=== PATIENT | female | born 1945 | race Caucasian/White ===

== ENCOUNTER 2017-02-01 10:03 | Outpatient (CLI) | payer MEDICARE ==
[2017-02-01] MEDS ORDERED: IOPAMIDOL-300 50 ML VIAL PO ONE (11:25)
[2017-02-01] MEDS ORDERED: IOPAMIDOL-300 100 ML VIAL IVP ONE (11:25)
--- NOTE | 2017-02-01 15:45 | CT Report ---
CT ABDOMEN AND PELVIS WITH CONTRAST: 02/01/2017 CLINICAL INDICATION: Bloating. TECHNIQUE: Axial CT images of the abdomen and pelvis were obtained with 60 mL Isovue-300 intravenous ly as well as oral contrast. No previous CT is available for comparison. FINDINGS: Limited evaluation of the lung bases is unremarkable. ABDOMEN: A portion of the stomach and spleen are excluded, due to an elevated left hemidiaphragm. T he liver demonstrates diffuse decrease in attenuation. Trace ascites is present. The gallbladder is nondistended. The visualized spleen, pancreas, kidneys and adrenal glands are unremarkable. No bow el dilatation, free gas, or abdominal adenopathy is seen. PELVIS: The appendix is seen in the right lower quadrant, and is normal in caliber. Trace ascites i s seen in the pelvis. Sigmoid diverticulosis is present, without CT evidence of diverticulitis. Pos toperative changes of hysterectomy are noted. No pelvic adenopathy is present. Osseous structures demonstrate degenerative changes. IMPRESSION: DECREASE IN HEPATIC ATTENUATION, COMPATIBLE WITH FATTY INFILTRATION. TRACE ASCITES. In accordance with CT protocol optimization, one or more of the following dose reduction techniques w ere utilized for this exam: automated exposure control, adjustment of mA and/or KV based on patient size, or use of iterative reconstructive technique. JOB #: [id number] EXT JOB #:[id number]
== END 2017-02-01 10:04 | disposition home or self-care (01) ==
LOC: DI 10:03
PROVIDERS: ATTEND Nurse Practitioner Family
DX: Z13.820 Encounter for screening for osteoporosis (principal); M85.88 Other specified disorders of bone density and structure, other site; R14.0 Abdominal distension (gaseous); F10.10 Alcohol abuse, uncomplicated; Z85.3 Personal history of malignant neoplasm of breast
CPT/HCPCS: 74177; 77080; Q9967

== ENCOUNTER 2017-02-01 10:30 | Outpatient (CLI) | payer MEDICARE ==
--- NOTE | 2017-02-01 13:09 | DEXA Report ---
DEXA SCAN: 02/01/2017 CLINICAL INDICATION: Postmenopausal. TECHNIQUE: Dual energy x-ray absorptiometry (DXA) was performed on a [employer] system. Regions measured are the AP spine, femoral neck, and, if needed, forearm. FINDINGS: The data for the lumbar spine is as follows: REGION BMD (g/cm/cm) T-SCORE Z-SCORE L1 0.818 -2.6 -1.1 L2 1.053 -1.2 0.2 L3 1.256 0.5 1.9 L4 1.169 -0.3 1.2 TOTAL 1.084 -0.8 0.7 NOTE: All evaluable vertebrae are used for classification. The data for the hip is as follows: REGION BMD (g/cm/cm) T-SCORE Z-SCORE Neck 0.778 -1.9 -0.2 TOTAL 0.802 -1.6 -0.2 NOTE: The femoral neck or total proximal femur, whichever is lowest, is used for classification. IMPRESSION: THE WHO CLASSIFICATION BASED ON THE INTERNATIONAL REFERENCE STANDARD IS OSTEOPENIA. THE FRACTURE RISK IS INCREASED. RECOMMENDATION: Patients with diagnosis of osteoporosis or osteopenia should have regular bone mineral density assessment. For those eligible for Medicare, routine testing is allowed once every 2 years. Testing frequency can be increased for patients who have rapidly progressing disease or for those who are receiving medical therapy to restore bone mass. COMMENT: World Health Organization (WHO) definitions for osteoporosis and osteopenia: NORMAL BMD: T-score at -1.0 or higher, fracture risk is low. OSTEOPENIA BMD: T-score between -1.0 and -2.5, fracture risk is increased. OSTEOPOROSIS BMD: T-score at -2.5 or lower, fracture risk high. National Osteoporosis Foundation recommends: 1. Obtain adequate dietary calcium (at least 1200 mg per day) and vitamin D (400 -800 international units per day). 2. Participate, as appropriate, in regular weightbearing and muscle- strengthening exercise. 3. Avoid tobacco use and reduce alcohol and caffeine intake. 4. For more detailed information see the website at www.NOF.org. MTDD
== END 2017-02-01 10:31 | disposition home or self-care (01) ==
LOC: DI 10:30
PROVIDERS: ATTEND Nurse Practitioner Family
DX: Z13.820 Encounter for screening for osteoporosis (principal); M85.88 Other specified disorders of bone density and structure, other site
CPT/HCPCS: 77080

== ENCOUNTER 2017-02-01 13:09 | Outpatient (CLI) | payer MEDICARE ==
--- NOTE | 2017-02-07 15:30 | Mammography Report ---
DIGITAL SCREENING RIGHT MAMMOGRAM: 02/01/2017 CLINICAL INDICATION: A 71-year-old with personal history of left breast cancer, status post mastectom y and chemoradiation, nulliparous patient, for right screening. TECHNIQUE: Right CC, MLO, laterally exaggerated CC views were obtained. COMPARISON: 12/2015, 12/2014, 10/2012, 09/2011, 09/2010, 09/2009, 09/2008, 09/2007, 10/2006. FINDINGS: The right breast demonstrates heterogeneously dense fibroglandular parenchyma. No suspicio us masses, clustered microcalcifications, or regions of architectural distortion are identified. IMPRESSION: NEGATIVE EXAMINATION. RECOMMENDATION: ROUTINE ANNUAL SCREENING UNLESS OTHERWISE CLINICALLY INDICATED. BIRADS CATEGORY 1-NEGATIVE. STANDARD QUALIFYING STATEMENTS 1. This examination was reviewed with the aid of Computer-Aided Detection (CAD). 2. A negative or benign imaging report should not delay biopsy if clinically suspicious findings are present. Consider surgical consultation if warranted. More than 5% of cancers are not identified by i maging. 3. Dense breasts may obscure an underlying neoplasm. JOB #: [id number] EXT JOB #:[id number]
== END 2017-02-01 13:10 | disposition home or self-care (01) ==
LOC: DI 13:09
PROVIDERS: ATTEND Nurse Practitioner Family
DX: Z12.31 Encounter for screening mammogram for malignant neoplasm of breast (principal); Z85.3 Personal history of malignant neoplasm of breast; Z90.12 Acquired absence of left breast and nipple
CPT/HCPCS: 77067

== ENCOUNTER 2017-02-11 14:31 | Outpatient (CLI) | payer MEDICARE | END 2017-02-11 14:32 | disposition critical access hospital (66) | LOC: EMS 14:31 | PROVIDERS: ATTEND Surgery | DX: S90.822A Blister (nonthermal), left foot, initial encounter (principal); W18.30XA Fall on same level, unspecified, initial encounter; Y92.013 Bedroom of single-family (private) house as the place of occurrence of the external cause | CPT/HCPCS: A0425; A0427 ==

== ENCOUNTER 2017-02-11 15:07 | Inpatient (IN) | payer MEDICARE ==
[2017-02-11] MEDS ORDERED: SODIUM CHLORIDE 0.9% 1,000 ML IV ONE ×2 (15:26)
--- NOTE | 2017-02-11 15:35 | ED Physician Documentation ---
History of Present Illness - Stated complaint Stated Complaint: FALL/ETOH - Chief complaint Chief Complaint: Neuro - History obtained from History obtained from: Patient, EMS - History of Present Illness Timing: Last night Pain level max: 0 Pain level now: 0 Improved by: nothing Worsened by: nothing - Additonal information Additional information: Patient is a 71-year-old female who presents to the emergency department after a fall last night at home. States she could not get up off the ground. Drinks 3-4 gin and tonics per night. She states that she has been increasingly falling over the past few weeks. Unsteady on her feet. She is a difficult historian here, has altered mental status. Review of Systems Unable to obtain: AMS Constitutional: denies: Fever, Chills Ears: denies: Ear pain Nose: denies: Rhinorrhea / runny nose, Congestion Cardiac: denies: Chest pain / pressure Respiratory: denies: Cough GI: denies: Abdominal Pain, Nausea, Vomiting, Diarrhea : denies: Dysuria Skin: denies: Rash Musculoskeletal: denies: Back pain Neurologic: reports: Generalized weakness, Confused, Altered mental status. denies: Focal weakness, Numbness PD PAST MEDICAL HISTORY - Past Medical History Past Medical History: Yes Other Past Medical History: breast CA - Past Surgical History Past Surgical History: Yes - Present Medications Home Medications: Ambulatory Orders Medication Instructions Recorded Confirmed Furosemide [Lasix] 40 mg DAILY 02/11/17 02/11/17 Venlafaxine HCl [Venlafaxine HCl 150 mg PO DAILY 02/11/17 02/11/17 ER] - Allergies Allergies/Adverse Reactions: Allergies Allergy/AdvReac Type Severity Reaction Status Date / Time No Known Drug Allergies Allergy Verified 02/11/17 17:27 - Living Situation Living Situation: reports: Alone Living Arrangement: reports: At home - Social History Does the pt drink ETOH?: Yes ETOH Use: Liquor - Family History Family history: reports: Non contributory PD ED PE NORMAL - Vitals Vital signs reviewed: Yes - General General: No acute distress, Well developed/nourished, Other (alert, oriented to person and place) - HEENT HEENT: Atraumatic, PERRL, Ears normal, Moist mucous membranes - Neck Neck: Supple, no meningeal sign - Cardiac Cardiac: RRR - Respiratory Respiratory: No respiratory distress, Clear bilaterally - Abdomen Abdomen: Soft, Non tender, Other (mild distended) - Back Back: No spinal TTP, Other (ecchymosis to the R ribs no crepitus) - Derm Derm: Warm and dry, No rash - Extremities Extremities: Other (ecchymosis to the lateral R thigh, diffuse pitting edema B LE up to the abdomen) - Neuro Neuro: No motor deficit, No sensory deficit - Psych Psych: Normal mood Results - Vitals Vitals: Vital Signs - 24 hr 02/11/17 02/11/17 02/11/17 15:10 15:45 16:00 Temperature 36 C L Heart Rate 131 H 129 H 129 H Respiratory 12 20 20 Rate Blood Pressure 110/77 122/89 H 122/89 H O2 Saturation 100 96 02/11/17 02/11/17 17:15 17:30 Temperature Heart Rate 128 H 131 H Respiratory 20 20 Rate Blood Pressure 119/71 118/77 O2 Saturation 97 Oxygen O2 Source Room air - EKG (time done) 1535 Rate: Rate (enter#) (133) Rhythm: Atrial fibrillation (with RVR) [place]: Normal QRS: No: Normal (wide QRS) Ischemia: Non specific changes Computer interpretation: Agree with computer - Labs Labs: Laboratory Tests 02/11/17 02/11/17 02/11/17 15:50 16:08 16:08 WBC 7.0 RBC 4.30 Hgb 12.5 Hct 38.9 MCV 90.4 MCH 29.1 MCHC 32.2 RDW 17.4 H Plt Count 159 MPV 8.9 Neut # 5.8 Lymph # 0.7 L [place] # 0.5 Eos # 0.0 Baso # 0.0 Absolute Nucleated RBC 0.00 Nucleated RBCs 0.1 PT INR APTT Sodium 128 L Potassium 4.5 Chloride 92 L Carbon Dioxide 21 Anion Gap 15.0 H BUN 42 H Creatinine 2.0 H Estimated GFR (MDRD) 24 L Glucose 75 Calcium 8.9 Total Bilirubin 2.6 H AST 123 H ALT 84 H Alkaline Phosphatase 143 H Ammonia Total Creatine Kinase 565 H B-Natriuretic Peptide Total Protein 6.1 L Albumin 2.9 L Globulin 3.2 Albumin/Globulin Ratio 0.9 L Lipase 23 Urine Color YELLOW Urine Clarity HAZY Urine pH 5.0 Ur Specific [place] >=1.030 H Urine Protein 30 H Urine Glucose (UA) NEGATIVE Urine Ketones TRACE Urine Occult Blood NEGATIVE Urine Nitrite NEGATIVE Urine Bilirubin NEGATIVE Urine Urobilinogen 0.2 (NORMAL) Ur Leukocyte Esterase NEGATIVE Urine RBC None Seen Urine WBC 0-3 Ur Squamous Epith Cells NONE SEEN Amorphous Sediment Marked Urine Bacteria None Seen Ur Microscopic Review INDICATED Urine Culture Comments NOT INDICATED Ethyl Alcohol 02/11/17 02/11/17 02/11/17 16:08 16:08 16:08 WBC RBC Hgb Hct MCV MCH MCHC RDW Plt Count MPV Neut # Lymph # [place] # Eos # Baso # Absolute Nucleated RBC Nucleated RBCs PT 19.9 H INR 1.8 H APTT 25.3 Sodium Potassium Chloride Carbon Dioxide Anion Gap BUN Creatinine Estimated GFR (MDRD) Glucose Calcium Total Bilirubin AST ALT Alkaline Phosphatase Ammonia Total Creatine Kinase B-Natriuretic Peptide 1317 H Total Protein Albumin Globulin Albumin/Globulin Ratio Lipase Urine Color Urine Clarity Urine pH Ur Specific [place] Urine Protein Urine Glucose (UA) Urine Ketones Urine Occult Blood Urine Nitrite Urine Bilirubin Urine Urobilinogen Ur Leukocyte Esterase Urine RBC Urine WBC Ur Squamous Epith Cells Amorphous Sediment Urine Bacteria Ur Microscopic Review Urine Culture Comments Ethyl Alcohol < 5.0 02/11/17 17:06 WBC RBC Hgb Hct MCV MCH MCHC RDW Plt Count MPV Neut # Lymph # [place] # Eos # Baso # Absolute Nucleated RBC Nucleated RBCs PT INR APTT Sodium Potassium Chloride Carbon Dioxide Anion Gap BUN Creatinine Estimated GFR (MDRD) Glucose Calcium Total Bilirubin AST ALT Alkaline Phosphatase Ammonia 34.4 Total Creatine Kinase B-Natriuretic Peptide Total Protein Albumin Globulin Albumin/Globulin Ratio Lipase Urine Color Urine Clarity Urine pH Ur Specific [place] Urine Protein Urine Glucose (UA) Urine Ketones Urine Occult Blood Urine Nitrite Urine Bilirubin Urine Urobilinogen Ur Leukocyte Esterase Urine RBC Urine WBC Ur Squamous Epith Cells Amorphous Sediment Urine Bacteria Ur Microscopic Review Urine Culture Comments Ethyl Alcohol - Rads (name of study) R femur Radiology: Prelim report reviewed, EMP read contemporaneously, See rad report ( Normal femur radiography. ) R ribs with cxr Radiology: Prelim report reviewed, EMP read contemporaneously, See rad report ( Normal rib radiography. ) head CT Radiology: Prelim report reviewed, EMP read contemporaneously, See rad report ( Normal head CT. ) cervical spine CT Radiology: Prelim report reviewed, EMP read contemporaneously, See rad report ( Mild degenerative disk disease cervical spine without evidence of cervical spine fracture) PD MEDICAL DECISION MAKING - ED course Complexity details: reviewed old records, reviewed results, re-evaluated patient , considered differential, d/w patient, d/w education sales consultant ED course: Patient is a 71-year-old female who presents to the emergency department after falling down at home last night and being unable to get up. Found by EMS today. She appears to have alcoholic cirrhosis with moderate ascites in the abdomen. No abdominal tenderness to suggest spontaneous bacterial peritonitis. She does have significant peripheral edema and an elevated BNP. Likely that she has congestive heart failure as well. She is also found to be in atrial fibrillation with rapid ventricular response. Appears that this is been ongoing for some time per her physician notes from outside the hospital. She has refused to come to the hospital for this in the past. Started on a diltiazem drip. Discussed the case with Dr. Murphy, hospitalist who accepts. This document was made in part using voice recognition software. While efforts are made to proofread this document, sound alike and grammatical errors may occur. Departure - Departure Disposition: 66 [facility] DC/Xfer Clinical Impression: Hyponatremia, Acute renal insufficiency, Peripheral edema, Atrial fibrillation with RVR Ascites Qualifiers: Ascites type: due to alcoholic cirrhosis Qualified Code(s): K70.31 - Alcoholic cirrhosis of liver with ascites Condition: Stable Discharge Date/Time: 02/11/17 19:30
[2017-02-11 16:10] LABS: BILIRUBIN,URINE NEGATIVE (NEGATIVE); UA w/ MICROSCOPIC CHARGE YES
[2017-02-11 16:17] LABS: BASOPHILS % (AUTO) 0.5 %; HCT - HEMATOCRIT 38.9 % (37.0-47.0); HGB - HEMOGLOBIN 12.5 g/dL (12.0-16.0); LYMPHOCYTES # (AUTO) 0.7 10^3/uL (1.5-3.5); LYMPHOCYTES % (AUTO) 9.5 %; MEAN CORPUSCULAR HEMOGLOBIN 29.1 pg (27.0-31.0); MEAN CORPUSCULAR HGB CONC 32.2 g/dL (32.0-36.0); MEAN CORPUSCULAR VOLUME 90.4 fL (81.0-99.0); MEAN PLATELET VOLUME 8.9 fL (7.9-10.8); MONOCYTES # (AUTO) 0.5 10^3/uL (0.0-1.0); MONOCYTES % (AUTO) 7.2 %; NEUTROPHILS # (AUTO) 5.8 10^3/uL (1.5-6.6); NEUTROPHILS % (AUTO) 82.8 %; NUCLEATED RED BLOOD CELLS AUTO 0.1 /100WBC; RED CELL DISTRIBUTION WIDTH 17.4 % (12.0-15.0)
[2017-02-11 16:25] LABS: INR 1.8 (0.8-1.2); PT - PROTHROMBIN TIME 19.9 secs (9.9-12.6)
[2017-02-11 16:30] LABS: ALBUMIN/GLOBULIN RATIO 0.9 (1.0-2.2); BILIRUBIN,TOTAL 2.6 mg/dL (0.2-1.0); CALCIUM 8.9 mg/dL (8.5-10.3); POTASSIUM 4.5 mmol/L (3.5-5.0); TOTAL PROTEIN 6.1 g/dL (6.7-8.2)
[2017-02-11 16:32] LABS: PARTIAL THROMBOPLASTIN TIME 25.3 secs (24.9-33.3)
--- NOTE | 2017-02-11 16:44 | CT Preliminary Report ---
Exam: CT Head W/O IMPRESSION: Normal head CT. [facility] SITE ID: [id number]
--- NOTE | 2017-02-11 16:47 | CT Report ---
EXAM: CT HEAD EXAM DATE: 02/11/2017 04:25 PM. CLINICAL HISTORY: Fall, loss of consciousness. COMPARISON: None. TECHNIQUE: Multiaxial CT images were obtained from the foramen magnum to the vertex. IV contrast: Non e. Reformats: Coronal. In accordance with CT protocol optimization, one or more of the following dose reduction techniques w ere utilized for this exam: automated exposure control, adjustment of mA and/or KV based on patient s ize, or use of iterative reconstructive technique. FINDINGS: Parenchyma: No intraparenchymal hemorrhage. No evidence of mass, midline shift, or CT findings of inf arction. Haji-white differentiation is distinct. Extraaxial Spaces: Normal for age. No subdural or epidural collections identified. Ventricles: Normal in size and position. Sinuses: Imaged paranasal sinuses, orbits, and mastoids show no significant abnormality. Bones: No evidence of fracture or calvarial defect. Other: None. IMPRESSION: Normal head CT. [facility] Referring Provider Line: [phone] SITE ID: [id number]
[2017-02-11 16:56] LABS: UR CULTURE IF IND NOT INDICATED; WBC,URINE 0-3 /HPF (0-5)
--- NOTE | 2017-02-11 17:01 | CT Preliminary Report ---
Exam: CT Cervical Spine W/O IMPRESSION: Mild degenerative disk disease cervical spine without evidence of cervical spine fracture . [facility] SITE ID: [id number]
--- NOTE | 2017-02-11 17:04 | CT Report ---
EXAM: CT CERVICAL SPINE WITHOUT CONTRAST DATE: 02/11/2017 04:25 PM HISTORY: Fall, loss of consciousness. COMPARISONS: None. TECHNIQUE: Thin-section axial images were acquired of the cervical spine without contrast. Post-proce ssing: Coronal and sagittal reformats. Other: None. In accordance with CT protocol optimization, one or more of the following dose reduction techniques w ere utilized for this exam: automated exposure control, adjustment of mA and/or KV based on patient s ize, or use of iterative reconstructive technique. FINDINGS: Alignment: Normal. No scoliosis or spondylolisthesis. Bones: No evidence of fracture. Left temporomandibular joint osteoarthritis. Interspace Levels/Facets: C1-C2: Unremarkable. C2-C3: Unremarkable. C3-C4: Minimal calcification within the disk space without significant stenosis. C4-C5: Facet hypertrophy without significant stenosis. C5-C6: Facet hypertrophy without significant stenosis. C6-C7: Unremarkable. C7-T1: Facet hypertrophy without significant stenosis. Other: The paravertebral and prevertebral soft tissues are normal. The lung apices are clear. IMPRESSION: Mild degenerative disk disease cervical spine without evidence of cervical spine fracture . [facility] Referring Provider Line: [phone] SITE ID: [id number]
--- NOTE | 2017-02-11 17:21 | XRAY Preliminary Report ---
Exam: XR Femur 2V RT IMPRESSION: Normal femur radiography. [facility] SITE ID: [id number]
--- NOTE | 2017-02-11 17:24 | XRAY Report ---
EXAM: RIGHT FEMUR RADIOGRAPHY EXAM DATE: 02/11/2017 04:54 PM. CLINICAL HISTORY: Fall R leg ecchymosis. COMPARISON: None. TECHNIQUE: 2 views. FINDINGS: Bones: Normal. No fracture or bone lesion. Joints: The visualized hip and knee joints are normal. No effusions. Soft Tissues: Normal. No soft tissue swelling. IMPRESSION: Normal femur radiography. [facility] Referring Provider Line: [phone] SITE ID: [id number]
--- NOTE | 2017-02-11 17:26 | XRAY Preliminary Report ---
Exam: XR Ribs w/PA Chest RT IMPRESSION: Normal rib radiography. [facility] SITE ID: [id number]
--- NOTE | 2017-02-11 17:29 | XRAY Report ---
EXAM: RIGHT RIB RADIOGRAPHY EXAM DATE: 02/11/2017 04:55 PM. CLINICAL HISTORY: Fall, R rib ecchymosis. COMPARISON: None. TECHNIQUE: 5 views. FINDINGS: Bones: Normal. No fracture or bone lesion. Lungs: Elevation of the left hemidiaphragm. The lungs are otherwise clear. Mediastinum: Heart and cardiomediastinal contours are unremarkable. Other: Status post left mastectomy Dissection. Median sternotomy noted. IMPRESSION: Normal rib radiography. [facility] Referring Provider Line: [phone] SITE ID: [id number]
[2017-02-11] MEDS ORDERED: diltiaZEM INJ 125 MG in DEXTROSE 5% 100 ML IV STA (17:39)
[2017-02-11] MEDS ORDERED: FUROSEMIDE 40 MG/4 ML VIAL IVP STA (17:42)
[2017-02-11] MEDS ORDERED: diltiaZEM INJ 5 MG/ML VIAL IVP STA (17:43)
[2017-02-11] MEDS ORDERED: FUROSEMIDE 40 MG/4 ML VIAL ONE (17:43)
[2017-02-11] MEDS ORDERED: ONDANSETRON 4 MG/2 ML VIAL IVP PRN (18:07)
[2017-02-11] MEDS ORDERED: PROMETHAZINE 25 MG/1 ML VIAL IM PRN (18:07)
[2017-02-11] MEDS ORDERED: ONDANSETRON ODT 4 MG TABLET TL PRN (18:07)
[2017-02-11] MEDS ORDERED: diltiaZEM INJ 5 MG/ML VIAL ONE (18:11)
[2017-02-11] MEDS: CARVEDILOL 3.125 MG TABLET PO SCH (21:52)
[2017-02-11] MEDS: FUROSEMIDE 40 MG/4 ML VIAL IVP SCH (21:52)
[2017-02-11] MEDS: DIGOXIN 500 MCG/2 ML AMP IVP SCH (21:52)
[2017-02-11] MEDS: SODIUM CHLORIDE FLUSH 0.9% 10 ML SYRINGE IVP SCH (21:53)
[2017-02-11] MEDS: SODIUM CHLORIDE FLUSH 0.9% 10 ML SYRINGE IVP PRN ×2 (21:53→22:10)
[2017-02-11] MEDS: LORazepam 2 MG/ML SYRINGE IVP PRN ×2 (22:10→23:01)
[2017-02-12] MEDS ORDERED: OLANZapine 10 MG VIAL IM SCH (00:47)
[2017-02-12] MEDS ORDERED: WATER FOR INJECTION,STERILE 10 ML ONE (01:16)
[2017-02-12] MEDS ORDERED: FLUMAZENIL 0.1 MG/1 ML 5 ML MDV IVP ONE ×2 (02:17→02:21)
--- NOTE | 2017-02-12 02:25 | PROVIDER PROGRESS NOTE ---
Assessment/Plan - Problem List (1) Acute respiratory failure with hypoxia Assessment/Plan: Since appears to have MIRYAM due to extreme drowsiness so will place in ICU for CPAP support. Check CXR. Check EKG Check serial troponins Check VBG Of note pt is DNR/DNI (2) Acute encephalopathy Assessment/Plan: May be related to oversedation. Try low dose flumazenil. Check stat CT head s contrast given recent falls at home. - Current Meds Current Meds: Current Medications Generic Name Dose Route Start Last Admin Trade Name Freq PRN Reason Stop Dose Admin Carvedilol 3.125 mg 02/11/17 21:00 02/11/17 21:52 Coreg PO 3.125 mg BID DIEGO Administration Digoxin 250 mcg 02/11/17 21:00 02/11/17 21:52 Lanoxin Inj IVP 02/12/17 17:01 250 mcg QID DIEGO Administration Furosemide 40 mg 02/11/17 21:00 02/11/17 21:52 Lasix Inj 40 Mg Vial IVP 40 mg BID DIEGO Administration Diltiazem HCl 125 mg/ Dextrose 125 mls @ 5 mls/hr 02/11/17 17:39 02/11/17 18:01 IV 02/12/17 18:38 5 mls/hr TITR STA Administration Protocol 5 MG/HR Lorazepam 0.5 mg 02/11/17 21:04 02/11/17 22:10 Ativan Inj IVP 0.5 mg Q2HR PRN Administration Anxiety Lorazepam 1 mg 02/11/17 22:51 02/11/17 23:01 Ativan Inj IVP 1 mg Q30M PRN Administration CIWA > 8 Protocol Olanzapine 5 mg 02/12/17 00:47 02/12/17 01:23 Zyprexa Im IM 02/12/17 04:00 5 mg ONCE DIEGO Administration Sodium Chloride 10 ml 02/11/17 18:07 02/11/17 22:10 Normal Saline Flush 0.9% IVP 10 ml PRN PRN Administration NEEDED PER PROVIDER ORDERS Sodium Chloride 10 ml 02/11/17 22:00 02/11/17 21:53 Normal Saline Flush 0.9% IVP 10 ml Q8HR DIEGO Administration - Lab Result Fish Bone Diagrams: 02/11/17 16:08 02/11/17 16:08 - Additional Planning My Orders: My Active Orders 02/11/17 21:03 Telemetry- [RC] Q4HR 02/11/17 21:04 LORazepam INJ [Ativan Inj] 0.5 mg IVP Q2HR PRN 02/11/17 22:51 CIWA - AR Score Card [RC] Routine Q2H Neuro Check [RC] Routine QSHIFT Straight Catheter Insertion [RC] PRN Vital Signs [RC] Q2HR LORazepam INJ [Ativan Inj] 1 mg IVP Q30M PRN 02/12/17 Head W/O [CT] Stat VENOUS BLOOD GAS [BG] Urgent Wound Consult MAC [MAC] Routine 02/12/17 00:47 OLANZapine IM [ZyPREXA IM] 5 mg IM ONCE 02/12/17 01:59 Admit \ Transfer \ Status [RC] ONCE 02/12/17 02:01 CPAP [BiPAP/CPAP] [RC] Q2HR 02/12/17 02:02 EKG - Electrocardiogram [RC] .ONCE TROPONIN I [IAI] Q6H 02/12/17 02:21 Flumazenil [Romazicon] 0.2 mg IVP ONCE ONE 02/12/17 05:00 COMPREHENSIVE METABOLIC PANEL [CHEM] Routine 02/12/17 08:02 TROPONIN I [IAI] Q6H 02/12/17 09:00 Nicotine 14 mg Patch [Nicoderm] 1 patch TOP DAILY Vitamin [Trinatal Rx 1] 1 tab PO DAILY Thiamine [Vitamin B-1] 100 mg PO DAILY 02/12/17 14:02 TROPONIN I [IAI] Q6H Subjective - Subjective Patient Reports: Other (Asked to see pt for increased respiratory distress with hypoxia and apneic periods and increased drowsiness . She was given some iv ativan and then was still agitated ,restless but no hypertension or tachycardia suggesting ETOH withdrawal. Pt then given im zyprexa and about an hour later this occurred.) Objective Vital Signs: Vital Signs - 24 hr 02/11/17 02/11/17 02/11/17 19:22 20:30 21:52 Temperature 36.6 C Heart Rate 114 H 118 H Heart Rate [ 110 H Radial] Respiratory 22 20 Rate Blood Pressure 118/66 Blood Pressure 102/70 [Right Brachial artery] O2 Saturation 99 98 Oxygen O2 Source Room air I&O (Last 24 Hrs): Intake and Output Totals x24h 06/11/17 06/12/17 06/13/17 23:59 23:59 23:59 Intake Total 50 Output Total 450 Balance -400 General: Other (very drowy but responds to painful stimuli) HEENT: Atraumatic, Other (slightly contricted BL) Neck: Supple Neuro: Non Focal, Other (drowsy but responds to painful stimuli) Cardiovascular: Regular rate, Normal S1, Normal S2 Respiratory: Other (Decresed BS at bases with some upper airway snoring) Abdomen: Normal bowel sounds, No tenderness Extremities: No cyanosis, Normal pulses Comments/Notes: Time spent 45 minutes. - Results Results: Laboratory Results WBC 7.0 x10^3/uL (4.8-10.8) 02/11/17 16:08 RBC 4.30 10^6/uL (4.20-5.40) 02/11/17 16:08 Hgb 12.5 g/dL (12.0-16.0) 02/11/17 16:08 Hct 38.9 % (37.0-47.0) 02/11/17 16:08 MCV 90.4 fL (81.0-99.0) 02/11/17 16:08 MCH 29.1 pg (27.0-31.0) 02/11/17 16:08 MCHC 32.2 g/dL (32.0-36.0) 02/11/17 16:08 RDW 17.4 % (12.0-15.0) H 02/11/17 16:08 Plt Count 159 10^3/uL (130-450) 02/11/17 16:08 MPV 8.9 fL (7.9-10.8) 02/11/17 16:08 Neut # 5.8 10^3/uL (1.5-6.6) 02/11/17 16:08 Lymph # 0.7 10^3/uL (1.5-3.5) L 02/11/17 16:08 [place] # 0.5 10^3/uL (0.0-1.0) 02/11/17 16:08 Eos # 0.0 10^3/uL (0.0-0.7) 02/11/17 16:08 Baso # 0.0 10^3/uL (0.0-0.1) 02/11/17 16:08 Absolute Nucleated RBC 0.00 x10^3/uL 02/11/17 16:08 Nucleated RBCs 0.1 /100WBC 02/11/17 16:08 PT 19.9 secs (9.9-12.6) H 02/11/17 16:08 INR 1.8 (0.8-1.2) H 02/11/17 16:08 APTT 25.3 secs (24.9-33.3) 02/11/17 16:08 Sodium 128 mmol/L (135-145) L 02/11/17 16:08 Potassium 4.5 mmol/L (3.5-5.0) 02/11/17 16:08 Chloride 92 mmol/L (101-111) L 02/11/17 16:08 Carbon Dioxide 21 mmol/L (21-32) 02/11/17 16:08 Anion Gap 15.0 (6-13) H 02/11/17 16:08 BUN 42 mg/dL (6-20) H 02/11/17 16:08 Creatinine 2.0 mg/dL (0.4-1.0) H 02/11/17 16:08 Estimated GFR (MDRD) 24 (>89) L 02/11/17 16:08 Glucose 75 mg/dL (70-100) 02/11/17 16:08 Calcium 8.9 mg/dL (8.5-10.3) 02/11/17 16:08 Total Bilirubin 2.6 mg/dL (0.2-1.0) H 02/11/17 16:08 AST 123 IU/L (10-42) H 02/11/17 16:08 ALT 84 IU/L (10-60) H 02/11/17 16:08 Alkaline Phosphatase 143 IU/L (42-121) H 02/11/17 16:08 Ammonia 34.4 umol/L (7-35) 02/11/17 17:06 Total Creatine Kinase 565 IU/L (22-269) H 02/11/17 16:08 B-Natriuretic Peptide 1317 pg/mL (5-100) H 02/11/17 16:08 Total Protein 6.1 g/dL (6.7-8.2) L 02/11/17 16:08 Albumin 2.9 g/dL (3.2-5.5) L 02/11/17 16:08 Globulin 3.2 g/dL (2.1-4.2) 02/11/17 16:08 Albumin/Globulin Ratio 0.9 (1.0-2.2) L 02/11/17 16:08 Lipase 23 U/L (22-51) 02/11/17 16:08 Urine Color YELLOW 02/11/17 15:50 Urine Clarity HAZY (CLEAR) 02/11/17 15:50 Urine pH 5.0 PH (5.0-7.5) 02/11/17 15:50 Ur Specific [place] >=1.030 (1.002-1.030) H 02/11/17 15:50 Urine Protein 30 mg/dL (NEGATIVE) H 02/11/17 15:50 Urine Glucose (UA) NEGATIVE mg/dL (NEGATIVE) 02/11/17 15:50 Urine Ketones TRACE mg/dL (NEGATIVE) 02/11/17 15:50 Urine Occult Blood NEGATIVE (NEGATIVE) 02/11/17 15:50 Urine Nitrite NEGATIVE (NEGATIVE) 02/11/17 15:50 Urine Bilirubin NEGATIVE (NEGATIVE) 02/11/17 15:50 Urine Urobilinogen 0.2 (NORMAL) E.U./dL (NORMAL) 02/11/17 15:50 Ur Leukocyte Esterase NEGATIVE (NEGATIVE) 02/11/17 15:50 Urine RBC None Seen /HPF (0-5) 02/11/17 15:50 Urine WBC 0-3 /HPF (0-5) 02/11/17 15:50 Ur Squamous Epith Cells NONE SEEN (<= Few) 02/11/17 15:50 Amorphous Sediment Marked /LPF 02/11/17 15:50 Urine Bacteria None Seen /HPF (None Seen) 02/11/17 15:50 Ur Microscopic Review INDICATED 02/11/17 15:50 Urine Culture Comments NOT INDICATED 02/11/17 15:50 Ethyl Alcohol < 5.0 mg/dL 02/11/17 16:08
[2017-02-12 03:33] LABS: VBG BASE EXCESS -6.3 mmol/L (-2 - +2); VBG OXYGEN SATURATION 98.9 % (60-80); VBG PH 7.23 (7.31-7.41); VBG TOTAL CO2 23.1 mmol/L (24-29)
[2017-02-12 03:43] LABS: ALBUMIN/GLOBULIN RATIO 0.9 (1.0-2.2); BILIRUBIN,TOTAL 2.3 mg/dL (0.2-1.0); CALCIUM 8.7 mg/dL (8.5-10.3); CREATININE 2.2 mg/dL (0.4-1.0); POTASSIUM 4.4 mmol/L (3.5-5.0); TOTAL PROTEIN 5.9 g/dL (6.7-8.2)
--- NOTE | 2017-02-12 05:15 | XRAY Preliminary Report ---
Exam: XR Chest 1 View IMPRESSION: 1. Rotated exam with cardiomegaly and postoperative changes. 2. New pulmonary opacities probably representing pulmonary edema or volume overload. Possible small e ffusions. [facility] SITE ID: [id number]
--- NOTE | 2017-02-12 05:18 | XRAY Report ---
EXAM: CHEST RADIOGRAPHY EXAM DATE: 02/12/2017 04:50 AM. CLINICAL HISTORY: Hypoxia. COMPARISON: 02/11/2017. TECHNIQUE: 1 view. FINDINGS: Lungs/Pleura: New bilateral pulmonary opacities, likely pulmonary edema or volume overload. Possible small effusions. No pneumothorax. Mediastinum: Rotated. Mild cardiomegaly. Aortic atherosclerosis. Other: Median sternotomy. Left mastectomy and axillary dissection. IMPRESSION: 1. Rotated exam with cardiomegaly and postoperative changes. 2. New pulmonary opacities probably representing pulmonary edema or volume overload. Possible small e ffusions. [facility] Referring Provider Line: [phone] SITE ID: [id number]
[2017-02-12] MEDS: SODIUM CHLORIDE FLUSH 0.9% 10 ML SYRINGE IVP PRN ×3 (06:40→23:58)
[2017-02-12] MEDS: SODIUM CHLORIDE FLUSH 0.9% 10 ML SYRINGE IVP SCH ×3 (06:40→21:30)
--- NOTE | 2017-02-12 06:50 | CT Preliminary Report ---
Exam: CT Head W/O IMPRESSION: No acute intracranial process. Stable findings since 02/11/2017. [facility] SITE ID: [id number]
--- NOTE | 2017-02-12 06:52 | CT Report ---
EXAM: CT HEAD EXAM DATE: 02/12/2017 06:20 AM. CLINICAL HISTORY: Acute encephalopathy. COMPARISON: 02/11/2017. TECHNIQUE: Multiaxial CT images were obtained from the foramen magnum to the vertex. IV contrast: Non e. Reformats: Coronal. In accordance with CT protocol optimization, one or more of the following dose reduction techniques w ere utilized for this exam: automated exposure control, adjustment of mA and/or KV based on patient s ize, or use of iterative reconstructive technique. FINDINGS: Parenchyma: No intraparenchymal hemorrhage. No evidence of mass, midline shift, or CT findings of int erval infarction. Haji-white differentiation is distinct. Extraaxial Spaces: Normal for age. No subdural or epidural collections identified. Ventricles: Normal in size and position. Sinuses: Imaged paranasal sinuses, orbits, and mastoids show no significant abnormality. Bones: No evidence of fracture or calvarial defect. Other: Small hypodensity left posterior putamen, old lacunar infarct versus dilated perivascular spac e, unchanged. IMPRESSION: No acute intracranial process. Stable findings since 02/11/2017. [facility] Referring Provider Line: [phone] SITE ID: [id number]
[2017-02-12 07:03] LABS: VBG BASE EXCESS -2.4 mmol/L (-2 - +2); VBG OXYGEN SATURATION 99.2 % (60-80); VBG PH 7.374 (7.31-7.41); VBG TOTAL CO2 23.8 mmol/L (24-29)
[2017-02-12] MEDS ORDERED: LACTULOSE 10 GM/15 ML BOTTLE PR PRN (07:35)
--- NOTE | 2017-02-12 07:39 | PROVIDER PROGRESS NOTE ---
Assessment/Plan - Problem List (1) Acute encephalopathy Assessment/Plan: Appears likely to be secondary to medication as patient received zyprexa and ativan last night Became unresponsive and had decreased respiratory drive CXR showed pulmonary edema but no focal infiltrates Given Flumazenil CT head negative Ammonia level normal Patient on BiPAP to help breathing Improving slowly opens eyes this am and following commands Will continue to monitor (2) Acute respiratory failure with hypoxia Assessment/Plan: Likely secondary to number 1 leading to decreased respiratory drive On BiPAP with good sats and no hypercapnea Once more awake will wean off BiPAP and O2 (3) Atrial fibrillation with RVR Assessment/Plan: Presented with A fib in rvr HR controlled this am Off dilt drip Continue PO dig and coreg CHADS2 score [address] on ASA (4) CHF exacerbation Qualifiers: Congestive heart failure type: unspecified congestive heart failure type Qualified Code(s): I50.9 - Heart failure, unspecified Assessment/Plan: Low normal EF on Echo Presented with a fib rvr and hypoxia with LE edema Looked to be in CHF exacerbation likely secondary to uncontrolled a fib rvr Placed on dilt drip and rate now controlled Placed on IV lasix On CoReg and dig will start lisinopril once photography editor improved Monitor I/O and daily weights (5) Elevated LFTs Assessment/Plan: Likely secondary to fatty liver as seen on previous CT abd Patient is a drinker could be developing cirrhosis as she has an INR of 1.8 and elevated Bili Ultrasound of abd and hepatitis panel ordered Monitor LFTs (6) Hyponatremia Assessment/Plan: Likely hypervolemic hyponatremia On IV lasix Continue to monitor Na (7) CONNIE (acute kidney injury) Assessment/Plan: Senior Java Architect elevated at 2.2 with no baseline photography editor in our system Assumed to be acute kidney injury likely cardio-renal or hepatorenal Give IV lasix If worsening will need to consider IVFs and renal ultrasound (8) Alcohol abuse Assessment/Plan: Drinks 3-4 gin and tonics daily Will monitor closely Hold off on banana bag secondary to volume overload Give PO thiamine, PO MV and PO folate CIWA protocol hold ativan for encephalopathy Strategic 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 Director 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 more alert - Current Meds Current Meds: Current Medications Generic Name Dose Route Start Last Admin Trade Name Freq PRN Reason Stop Dose Admin Carvedilol 3.125 mg 02/11/17 21:00 02/11/17 21:52 Coreg PO 3.125 mg BID DIEGO Administration Digoxin 250 mcg 02/11/17 21:00 02/11/17 21:52 Lanoxin Inj IVP 02/12/17 17:01 250 mcg QID DIEGO Administration Furosemide 40 mg 02/11/17 21:00 02/11/17 21:52 Lasix Inj 40 Mg Vial IVP 40 mg BID DIEGO Administration Diltiazem HCl 125 mg/ Dextrose 125 mls @ 5 mls/hr 02/11/17 17:39 02/11/17 18:01 IV 02/12/17 18:38 5 mls/hr TITR STA Administration Protocol 5 MG/HR Lorazepam 0.5 mg 02/11/17 21:04 02/11/17 22:10 Ativan Inj IVP 0.5 mg Q2HR PRN Administration Anxiety Lorazepam 1 mg 02/11/17 22:51 02/11/17 23:01 Ativan Inj IVP 1 mg Q30M PRN Administration CIWA > 8 Protocol Sodium Chloride 10 ml 02/11/17 18:07 02/12/17 06:40 Normal Saline Flush 0.9% IVP 10 ml PRN PRN Administration NEEDED PER PROVIDER ORDERS Sodium Chloride 10 ml 02/11/17 22:00 02/12/17 06:40 Normal Saline Flush 0.9% IVP 10 ml Q8HR DIEGO Administration - Lab Result Lab results reviewed: Yes Fish Bone Diagrams: 02/11/17 16:08 02/12/17 03:23 - EKG Results EKG Interpreted Independently: Yes - Diagnostic Imaging Results Diagnostic Imaging Results: positive: Final report reviewed - Additional Planning Condition/Complexity: Critical My Orders: My Active Orders 02/12/17 AMMONIA [CHEM] Routine 02/12/17 07:35 Lactulose 60 gm FL QID PRN Plan Discussed with:: Patient Time Spent: 31-60 minutes Subjective - Subjective Patient Reports: Other (Patient very lethargic, open eyes to verbal stimuli but not talking clearly, she does follow commands. No fevers overnight. She became lethargic with decreased respiratory drive overnight.) Nursing Reports: No Complaints Objective Vital Signs: Vital Signs - 24 hr 02/11/17 02/11/17 02/11/17 19:22 20:30 21:52 Temperature 36.6 C Heart Rate 114 H 118 H Heart Rate [ 110 H Radial] Respiratory 22 20 Rate Blood Pressure 118/66 Blood Pressure 102/70 [Right Brachial artery] O2 Saturation 99 98 02/12/17 02/12/17 02/12/17 02:10 02:15 02:20 Temperature Heart Rate 105 H Heart Rate [ 118 H 118 H Radial] Respiratory 15 24 Rate Blood Pressure Blood Pressure 123/91 H 120/74 [Right Brachial artery] O2 Saturation 100 98 02/12/17 02/12/17 02/12/17 02:25 02:30 03:00 Temperature 36.1 C L Heart Rate Heart Rate [ 116 H 109 H 105 H Radial] Respiratory 15 15 16 Rate Blood Pressure Blood Pressure 127/67 120/98 H 111/64 [Right Brachial artery] O2 Saturation 99 99 02/12/17 02/12/17 02/12/17 03:05 03:10 03:15 Temperature Heart Rate Heart Rate [ 106 H 108 H 106 H Radial] Respiratory 15 15 15 Rate Blood Pressure Blood Pressure 115/55 L 117/63 112/61 [Right Brachial artery] O2 Saturation 99 97 97 02/12/17 02/12/17 02/12/17 03:30 03:45 04:00 Temperature Heart Rate Heart Rate [ 100 103 H 101 H Radial] Respiratory 15 18 15 Rate Blood Pressure Blood Pressure 114/72 109/54 L 88/54 L [Right Brachial artery] O2 Saturation 99 99 98 02/12/17 02/12/17 02/12/17 04:06 04:20 05:00 Temperature Heart Rate 101 H Heart Rate [ 98 Radial] Respiratory 22 Rate Blood Pressure Blood Pressure 107/68 90/51 L [Right Brachial artery] O2 Saturation 97 02/12/17 02/12/17 02/12/17 06:00 06:15 07:15 Temperature 36.9 C Heart Rate 94 95 Heart Rate [ 92 Radial] Respiratory 17 Rate Blood Pressure Blood Pressure 106/63 [Right Brachial artery] O2 Saturation 100 Oxygen O2 Source BIPAP I&O (Last 24 Hrs): Intake and Output Totals x24h 02/10/17 02/11/17 02/12/17 23:59 23:59 23:59 Intake Total 50 Output Total 450 400 Balance -400 -400 General: Other (Lethargic, follows commands slowly, wakes up to verbal stimuli but not verbal.) HEENT: Atraumatic, PERRLA, EOMI, Mucous membr. moist/pink Neck: Supple, No JVD, No thyromegaly, +2 carotid pulse wo bruit, No LAD Lymphatic: no adenopathy Neuro: Non Focal, Other (lethargic, follows simple commands) Cardiovascular: Other (Irregularly irregular rhythm with normal rate) Respiratory: No respiratory distress, Rales (bases) Abdomen: Normal bowel sounds, Soft, No tenderness, No hepatospenomegaly, No masses Extremities: No clubbing, No cyanosis, Normal pulses, Other (Bilateral LE edema) Skin: No rashes, No breakdown - Results Results: Laboratory Results WBC 7.0 x10^3/uL (4.8-10.8) 02/11/17 16:08 RBC 4.30 10^6/uL (4.20-5.40) 02/11/17 16:08 Hgb 12.5 g/dL (12.0-16.0) 02/11/17 16:08 Hct 38.9 % (37.0-47.0) 02/11/17 16:08 MCV 90.4 fL (81.0-99.0) 02/11/17 16:08 MCH 29.1 pg (27.0-31.0) 02/11/17 16:08 MCHC 32.2 g/dL (32.0-36.0) 02/11/17 16:08 RDW 17.4 % (12.0-15.0) H 02/11/17 16:08 Plt Count 159 10^3/uL (130-450) 02/11/17 16:08 MPV 8.9 fL (7.9-10.8) 02/11/17 16:08 Neut # 5.8 10^3/uL (1.5-6.6) 02/11/17 16:08 Lymph # 0.7 10^3/uL (1.5-3.5) L 02/11/17 16:08 [place] # 0.5 10^3/uL (0.0-1.0) 02/11/17 16:08 Eos # 0.0 10^3/uL (0.0-0.7) 02/11/17 16:08 Baso # 0.0 10^3/uL (0.0-0.1) 02/11/17 16:08 Absolute Nucleated RBC 0.00 x10^3/uL 02/11/17 16:08 Nucleated RBCs 0.1 /100WBC 02/11/17 16:08 PT 19.9 secs (9.9-12.6) H 02/11/17 16:08 INR 1.8 (0.8-1.2) H 02/11/17 16:08 APTT 25.3 secs (24.9-33.3) 02/11/17 16:08 VBG pH 7.374 (7.31-7.41) 02/12/17 06:52 VBG pCO2 39.6 mmHg (41-51) L 02/12/17 06:52 VBG pO2 182.3 mmHg (25-47) H 02/12/17 06:52 VBG HCO3 22.6 mmol/L (23-28) L 02/12/17 06:52 VBG Total CO2 23.8 mmol/L (24-29) L 02/12/17 06:52 VBG O2 Saturation 99.2 % (60-80) H 02/12/17 06:52 VBG Base Excess -2.4 mmol/L (-2 - +2) L 02/12/17 06:52 Sodium 130 mmol/L (135-145) L 02/12/17 03:23 Potassium 4.4 mmol/L (3.5-5.0) 02/12/17 03:23 Chloride 94 mmol/L (101-111) L 02/12/17 03:23 Carbon Dioxide 22 mmol/L (21-32) 02/12/17 03:23 Anion Gap 14.0 (6-13) H 02/12/17 03:23 BUN 45 mg/dL (6-20) H 02/12/17 03:23 Creatinine 2.2 mg/dL (0.4-1.0) H 02/12/17 03:23 Estimated GFR (MDRD) 22 (>89) L 02/12/17 03:23 Glucose 79 mg/dL (70-100) 02/12/17 03:23 Calcium 8.7 mg/dL (8.5-10.3) 02/12/17 03:23 Total Bilirubin 2.3 mg/dL (0.2-1.0) H 02/12/17 03:23 AST 132 IU/L (10-42) H 02/12/17 03:23 ALT 86 IU/L (10-60) H 02/12/17 03:23 Alkaline Phosphatase 136 IU/L (42-121) H 02/12/17 03:23 Ammonia 34.4 umol/L (7-35) 02/11/17 17:06 Total Creatine Kinase 565 IU/L (22-269) H 02/11/17 16:08 Troponin I 0.08 ng/mL (<0.49) 02/12/17 03:23 B-Natriuretic Peptide 1317 pg/mL (5-100) H 02/11/17 16:08 Total Protein 5.9 g/dL (6.7-8.2) L 02/12/17 03:23 Albumin 2.8 g/dL (3.2-5.5) L 02/12/17 03:23 Globulin 3.1 g/dL (2.1-4.2) 02/12/17 03:23 Albumin/Globulin Ratio 0.9 (1.0-2.2) L 02/12/17 03:23 Lipase 23 U/L (22-51) 02/11/17 16:08 Urine Color YELLOW 02/11/17 15:50 Urine Clarity HAZY (CLEAR) 02/11/17 15:50 Urine pH 5.0 PH (5.0-7.5) 02/11/17 15:50 Ur Specific [place] >=1.030 (1.002-1.030) H 02/11/17 15:50 Urine Protein 30 mg/dL (NEGATIVE) H 02/11/17 15:50 Urine Glucose (UA) NEGATIVE mg/dL (NEGATIVE) 02/11/17 15:50 Urine Ketones TRACE mg/dL (NEGATIVE) 02/11/17 15:50 Urine Occult Blood NEGATIVE (NEGATIVE) 02/11/17 15:50 Urine Nitrite NEGATIVE (NEGATIVE) 02/11/17 15:50 Urine Bilirubin NEGATIVE (NEGATIVE) 02/11/17 15:50 Urine Urobilinogen 0.2 (NORMAL) E.U./dL (NORMAL) 02/11/17 15:50 Ur Leukocyte Esterase NEGATIVE (NEGATIVE) 02/11/17 15:50 Urine RBC None Seen /HPF (0-5) 02/11/17 15:50 Urine WBC 0-3 /HPF (0-5) 02/11/17 15:50 Ur Squamous Epith Cells NONE SEEN (<= Few) 02/11/17 15:50 Amorphous Sediment Marked /LPF 02/11/17 15:50 Urine Bacteria None Seen /HPF (None Seen) 02/11/17 15:50 Ur Microscopic Review INDICATED 02/11/17 15:50 Urine Culture Comments NOT INDICATED 02/11/17 15:50 Ethyl Alcohol < 5.0 mg/dL 02/11/17 16:08
[2017-02-12] MEDS ORDERED: POLYETHYLENE GLYCOL 3350 17 GM PACKET PO SCH (09:00)
[2017-02-12] MEDS ORDERED: THIAMINE 100 MG TABLET PO SCH (09:00)
[2017-02-12] MEDS ORDERED: PRENATAL VITAMIN TABLET PO SCH (09:00)
[2017-02-12] MEDS ORDERED: VENLAFAXINE ER 75 MG CAPSULE PO SCH (09:00)
[2017-02-12] MEDS: DOCUSATE SODIUM 250 MG CAPSULE PO SCH (09:11)
[2017-02-12] MEDS: SENNA 8.6 MG TABLET PO SCH (09:11)
[2017-02-12] MEDS: POLYETHYLENE GLYCOL 3350 17 GM PACKET PO SCH (09:11)
[2017-02-12] MEDS: CARVEDILOL 3.125 MG TABLET PO SCH ×2 (09:11→17:48)
[2017-02-12] MEDS: NICOTINE 14 MG PATCH TOP SCH (09:19)
[2017-02-12] MEDS: DIGOXIN 500 MCG/2 ML AMP IVP SCH ×3 (09:19→17:57)
[2017-02-12] MEDS: FUROSEMIDE 40 MG/4 ML VIAL IVP SCH ×2 (09:19→20:43)
--- NOTE | 2017-02-12 09:19 | HISTORY & PHYSICAL EXAMINATION ---
DATE OF ADMISSION: 02/11/2017 PRIMARY CARE PROVIDER: ELIZABETH Marmolejo ADMITTING PROVIDER: Gayle Murphy MD. CHIEF COMPLAINT: Unable to get off the ground for over a night. HISTORY OF PRESENT ILLNESS: Patient is a 71-year-old white female who "let depression get the best of her" over the last few weeks to months. She is on a fixed income and has had an increasing struggle to meet her bills. 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 Then 2 or 3 weeks ago, her landlord told her that she was upping the rent. It was unexpected. Patient said she just could not afford it and in response snapped at her landlord and said, "well, then fine, she will just leave and move." The patient is in the midst of trying to find senior housing at [facility] in [place]. She has had a fast heart rate for many, many weeks now. Her primary care provider has urged her to be seen for this, and the patient just did not want to do it. She is also an alcoholic. She went through rehab in 2010 and somewhere around 2012 went back to drinking. She is trying to cut back, but she probably drinks 3-4 gin and tonics a day. She has been increasingly fatigued, not eating. More and more short of breath and having increasing leg edema. Having less and less energy to get anything done. She fell last night after stumbling and missing her step in the early evening hours. Could not get to the phone and lay on the ground pretty much all the evening until this morning, when she was finally able to get to a phone, and she called EMS. EMS brought her in, and she is in fast atrial fibrillation with RVR. She is in congestive heart failure, and has cirrhosis and ascites. She was evaluated by Dr. Christ Crystal. She is tachycardic, afebrile, normotensive, with an elevated BNP, elevated creatinine, and swollen lower legs that are red and hot. PAST MEDICAL HISTORY 1. Invasive lobular carcinoma of the breast. Status post left mastectomy, lymph node dissection, radiation, and chemotherapy. This was all in 10/2005. 2. Subsequent "clots" in the right atrium as a complication of her Port-A-Cath placement. I am not quite sure what she is talking about, but she ended up having bypass surgery x4 in 2006 at [facility]. 3. Alcoholism with current alcohol abuse above. 4. Cirrhosis with ascites. 5. Depression, on antidepressants, not compliant with medications recently. 6. G0, P0. Last menstrual period at age 43. 7. Osteopenia with 1 L-spine being -2.6, and hips and the rest of her L-spine being anywhere from -1.4 to -1.9. 8. She has no history of atrial fibrillation, as far she knows. ALLERGIES: NO KNOWN DRUG ALLERGIES. MEDICATIONS Supposed to be: 1. Lasix 40 mg a day. 2. Venlafaxine extended release 150 mg a day. SOCIAL HISTORY: Obtained from her friend Rosie Farooq and her nephew. She was born in [place] and raised and educated there. She was once out of high school, and it was a horrendous relationship with a quick divorce. 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 She was abusing alcohol until 2010, went through rehabilitation, but then went back to drinking again in 2013. Currently drinking 3 to 4 gin and tonics a day. Ex- tobacco smoker. Quit at the time of her bypass surgery but cannot remember how long she smoked. She has no history of cocaine, heroin, LSD abuse. She lives alone. Her main support system is her nephew, Denton Shelley. He lives in [place]. She also has a best friend named Rosie Farooq, and Henry Jones. CODE STATUS: DO NOT RESUSCITATE, DO NOT INTUBATE. FAMILY HISTORY: Parents of old age. She recently lost her sister 2 years ago to complications from COPD. She also had an unknown type of cancer before she . Her brother at age 64 and had testicular cancer and survived, and then 15-20 years later developed kidney cancer. He developed congestive heart failure toward the end of his life. She has 4 nephews. Only one of them is in her life, and that is Denton. CONTACTS Henry Jones is the draw machine operator of [employer] in [place], and her cell phone is . Rosie Farooq is [phone]. Denton Shelley is her designated advocate, and, although he is not a power of rejogger, she would like him to have power of rejogger, and his number is [phone]. REVIEW OF SYSTEMS HEENT: Denies recent vision changes, headaches, dysarthria, dysphasia. RESPIRATORY: Constant mild daily cough but nonproductive. Unchanged without fevers or increased chest congestion or hemoptysis. CARDIAC: Bypass surgery. Denies congestive heart failure or atrial fibrillation , just that she has had a fast heart rate for a long time, and her doctor has been worried, but she does not want to do anything about it, up until now. GASTROINTESTINAL: Denies blood in her stool, vomiting of blood, abdominal pain. She just has a bad appetite and does not want to eat. Mild increasing abdominal distention with increased girth. JOINTS: She just hurts all over. She does not know why. She is miserable with it. But no trauma. No swelling. SKIN: Legs have become more swollen, red, and hot. Denies any new moles or rashes. PSYCHIATRIC: Readily admits that depression is getting worse. Having her apartment be yanked from underneath her really sent her over the edge. She denies suicidal ideation. I asked her point blank if she wishes to , and if she wishes me to place her on hospice. She is startled and gets tearful and says that she does not want to . She recognizes that her stubbornness made have "painted me into a corner," and she wishes to get help and to get out of this mess she is in. She denies hallucinations. CENTRAL NERVOUS SYSTEM: Denies syncope or seizures. Her nephew and Ms. Farooq both comment that the patient seems to be losing her memory. Thought process is not very clear, and the patient endorses that and says that it may be that she is just drinking too much. She has never had withdrawal. PHYSICAL EXAMINATION VITAL SIGNS: On examination, she is seen in the emergency room after she has received Lasix. Temperature is 36, pulse is 131, blood pressure is 118/77, respirations are 20 and unlabored, and she is 97% on room air. GENERAL: She is a lean, thin, elderly woman with short hair, all hill, tattoos on the left upper chest where her mastectomy is and the right deltoid. In no acute distress but an interesting movement disorder. Constant jerking and moving of her body on the bed as if she is agitated. She says she does not feel agitated or anxious, more than anything just sad, but feels like she has to urinate like crazy and just cannot sit still. HEENT: Head and neck shows normocephalic, atraumatic skull. She did not hit her head when she fell. Pupils are reactive. She has bilateral arcus senilis, muddy sclerae, but not icteric. Dry oral mucosa. Upper teeth partially missing. Speech is normal. Tongue is dry and pink. NECK: Supple, and she does have JVD at 40 degrees. No goiter or bruits. LUNGS: Bibasilar crackles and diminished breath sounds at the bases, but there is no tachypnea, no increased respiratory effort to talk to me. She is comfortable lying in bed, other than that twitching that she is exhibiting. CARDIOVASCULAR: PMI is slightly laterally displaced and fast irregular rate and rhythm with a systolic ejection murmur. CHEST: Chest wall is deformed from the left mastectomy. Right breast is small, atrophic without masses. ABDOMEN: Softly distended, nontender. Liver edge is palpable. I do not feel a fluid wave. There is no rebound or guarding, and she has hypoactive bowel sounds. EXTREMITIES: Her legs are swollen from the knees down. The tops of her shins and the tops of her feet are bright red and hot to touch. You can see where edema is starting to resolve, and she is already shrinking down her legs. The top of her left foot has a large bullous lesion that is ruptured, and it is about 6 cm in size; but there is no cellulitis yet. Edema 2+. No clubbing, no cyanosis. NEUROLOGIC: Neurologically she has the nervous twitching, but cranial nerves 12 appear grossly intact. She has generalized weakness, and she needs help from me to sit her up, and to sit her back down for my exam. She is able to lift arms, use her hands, lift her legs off the gurney for me, but she cannot sit up on her own, and she needs a 1-person to 2-person assist. No focal deficits, just generalized weakness. LABORATORIES: Sodium 128, potassium 4.5, BUN 42, creatinine 2, glucose 75, total bilirubin 2.6, AST 123, ALT 84, alkaline phosphatase 143, CK is 565. Ammonia is 34. BNP is 1317, total protein 6.1. Lipase is 23. White cell count is normal, hemoglobin and hematocrit normal, and MCV is normal. INR is 1.8. Urinalysis has specific gravity that is high and some proteinuria, trace ketones , but no red cells, minimal white cells, no squamous epithelial cells, marked sediment, no bacteria, and culture is not going to be done. Alcohol level is less than 5. IMAGING: She has a series films including cervical spine CT, femur x-ray, head CT, chest x-ray and ribs. No acute pathological fractures are found, no pneumonia. She has facet arthropathy of her neck but no significant stenosis. She has left TMJ arthritis. ASSESSMENT/PLAN 1. Generalized weakness and failure to thrive from #2 and #3. Once those issues are addressed, and we can stabilize her status, the plan is for her to be here 2 -3 days and then transition to possibly rehabilitation, and then independent living at senior subsidized housing. She has already started the process of looking at [facility] and would like us to continue that process, and I will let Social Service know. 2. Atrial fibrillation with rapid ventricular rate. Probable new diagnosis. It is persistent. This has caused problem #3. Check echo. At this time, slow rate with Coreg and digoxin and avoid diltiazem until I know what her left ventricle is doing. No anticoagulation at this time, since her INR is 1.8. 3. Acute systolic congestive heart failure. Again, check echo. Get records from for her previous anatomy. Diurese with Lasix. Start Coreg and digoxin to help with rate slowing. 4. Alcohol abuse in the face of alcohol liver disease. Bilirubin is up, and it could be a symptom of liver failure rather than obstruction. Check ultrasound of abdomen. Watch for withdrawal as manifested by agitation, delirium, etc. 5. DO NOT RESUSCITATE, DO NOT INTUBATE status. 6. Deep venous thrombosis prophylaxis with SCDs and MERRY troncoso. JOB #: [id number] EXT JOB #:[id number] [facility]
[2017-02-12] MEDS: THIAMINE 100 MG TABLET PO SCH (17:46)
[2017-02-12] MEDS: PRENATAL VITAMIN TABLET PO SCH (17:47)
[2017-02-12] MEDS: VENLAFAXINE ER 75 MG CAPSULE PO SCH (17:51)
--- NOTE | 2017-02-12 20:12 | Ultrasound Preliminary Report ---
Exam: US Abdomen Complete Impression: 1. Mild bilateral upper quadrant ascites. 2. Small right pleural effusion. [facility] SITE ID: [id number]
[2017-02-12] MEDS: ACETAMINOPHEN 325 MG TABLET PO PRN (20:14)
--- NOTE | 2017-02-12 20:15 | Ultrasound Report ---
EXAM: ABDOMEN ULTRASOUND EXAM DATE: 02/12/2017 06:58 PM. CLINICAL HISTORY: Cirrhosis with ascites. COMPARISON: 02/01/2017 CT. TECHNIQUE: Real-time scanning was performed with static images obtained. FINDINGS: Liver: Heterogeneous echotexture. No focal masses. 14.2 cm. Main portal vein flow: Hepatopetal. Gallbladder: No gallstones. No gallbladder wall thickening. There is pericholecystic fluid which is l ikely ascites related. Biliary System: Common bile duct measures 5 mm. No intrahepatic or extrahepatic ductal dilatation. Other: No right hydronephrosis. There is mild ascites limited to the upper quadrants. There is a smal l right pleural effusion. Impression: 1. Mild bilateral upper quadrant ascites. 2. Small right pleural effusion. [facility] Referring Provider Line: [phone] SITE ID: [id number]
[2017-02-12] MEDS ORDERED: DIGOXIN 500 MCG/2 ML AMP IVP SCH (21:00)
[2017-02-12] MEDS: LORazepam 2 MG/ML SYRINGE IVP PRN (23:58)
[2017-02-13] MEDS: SODIUM CHLORIDE FLUSH 0.9% 10 ML SYRINGE IVP SCH ×4 (06:10→20:20)
[2017-02-13 06:34] LABS: BASOPHILS % (AUTO) 0.5 %; EOSINOPHILS % (AUTO) 0.4 %; HCT - HEMATOCRIT 37.8 % (37.0-47.0); HGB - HEMOGLOBIN 12.2 g/dL (12.0-16.0); LYMPHOCYTES # (AUTO) 0.7 10^3/uL (1.5-3.5); LYMPHOCYTES % (AUTO) 11.7 %; MEAN CORPUSCULAR HEMOGLOBIN 29.2 pg (27.0-31.0); MEAN CORPUSCULAR HGB CONC 32.4 g/dL (32.0-36.0); MEAN CORPUSCULAR VOLUME 90.1 fL (81.0-99.0); MEAN PLATELET VOLUME 8.2 fL (7.9-10.8); MONOCYTES # (AUTO) 0.4 10^3/uL (0.0-1.0); MONOCYTES % (AUTO) 7.5 %; NEUTROPHILS # (AUTO) 4.4 10^3/uL (1.5-6.6); NEUTROPHILS % (AUTO) 79.9 %; NUCLEATED RED BLOOD CELLS AUTO 0.1 /100WBC; RED CELL DISTRIBUTION WIDTH 17.4 % (12.0-15.0); UNCORRECTED WHITE BLOOD COUNT 5.6 x10^3/uL; WHITE BLOOD COUNT 5.6 x10^3/uL (4.8-10.8)
[2017-02-13] MEDS ORDERED: MIN OIL/DIMETHICON/COCONUT OIL 92 GM TUBE TOP PRN (06:48)
[2017-02-13 06:51] LABS: CALCIUM 8.6 mg/dL (8.5-10.3); CREATININE 1.9 mg/dL (0.4-1.0)
[2017-02-13] MEDS ORDERED: POTASSIUM CHLORIDE 20 MEQ TABLET PO ONE (08:00)
[2017-02-13] MEDS: DOCUSATE SODIUM 250 MG CAPSULE PO SCH (08:55)
[2017-02-13] MEDS: SENNA 8.6 MG TABLET PO SCH (08:55)
[2017-02-13] MEDS: DIGOXIN 125 MCG TABLET PO SCH (08:56)
[2017-02-13] MEDS: CARVEDILOL 3.125 MG TABLET PO SCH ×2 (08:56→20:20)
[2017-02-13] MEDS: THIAMINE 100 MG TABLET PO SCH (08:56)
[2017-02-13] MEDS: VENLAFAXINE ER 75 MG CAPSULE PO SCH (08:56)
[2017-02-13] MEDS: LISINOPRIL 5 MG TABLET PO SCH (08:56)
[2017-02-13] MEDS: POLYETHYLENE GLYCOL 3350 17 GM PACKET PO SCH (08:57)
[2017-02-13] MEDS: NICOTINE 14 MG PATCH TOP SCH (08:57)
[2017-02-13] MEDS: FUROSEMIDE 40 MG/4 ML VIAL IVP SCH ×2 (08:58→20:20)
[2017-02-13] MEDS: SODIUM CHLORIDE FLUSH 0.9% 10 ML SYRINGE IVP PRN (15:21)
[2017-02-13] MEDS: PRENATAL VITAMIN TABLET PO SCH (17:30)
--- NOTE | 2017-02-13 17:49 | PROVIDER PROGRESS NOTE ---
Assessment/Plan - Problem List (1) Acute encephalopathy Assessment/Plan: Appears likely to be secondary to medication as patient received zyprexa and ativan on first day of admission Became unresponsive and had decreased respiratory drive CXR showed pulmonary edema but no focal infiltrates Given Flumazenil CT head negative Ammonia level normal Resolved for the most part still has some confusion but off BiPAP and mentation is normal (2) Acute respiratory failure with hypoxia Assessment/Plan: Likely secondary to number 1 leading to decreased respiratory drive Off BiPAP Resolved (3) Atrial fibrillation with RVR Assessment/Plan: Presented with A fib in rvr HR controlled Off dilt drip Continue PO dig and coreg CHADS2 score 1 no coumadin (4) CHF exacerbation Qualifiers: Congestive heart failure type: unspecified congestive heart failure type Qualified Code(s): I50.9 - Heart failure, unspecified Assessment/Plan: Low normal EF on Echo Presented with a fib rvr and hypoxia with LE edema Looked to be in CHF exacerbation likely secondary to uncontrolled a fib rvr Placed on dilt drip and rate now controlled Placed on IV lasix On CoReg, dig and will start lisinopril today Monitor I/O and daily weights Improving off O2 today BNP improved but still easily short of breath Very weak needs PT evaluation and will likely need SNF (5) Elevated LFTs Assessment/Plan: Likely secondary to fatty liver as seen on previous CT abd Patient is a drinker could be developing cirrhosis as she has an INR of 1.8 and elevated Bili Ultrasound of abd showed no cirrhosis but did show ascites Monitor LFTs (6) Hyponatremia Assessment/Plan: Likely hypervolemic hyponatremia On IV lasix Resolved (7) CONNIE (acute kidney injury) Assessment/Plan: 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 with no baseline epic radiant analyst in our system Assumed to be acute kidney injury likely cardio-renal Given IV lasix Car Repossessor improved to 1.9 (8) Alcohol abuse Assessment/Plan: Drinks 3-4 gin and tonics daily Will monitor closely Hold off on banana bag secondary to volume overload Give PO thiamine, PO MV and PO folate CIWA protocol hold ativan for encephalopathy Counselled - Current Meds Current Meds: Current Medications Generic Name Dose Route Start Last Admin Trade Name Freq PRN Reason Stop Dose Admin Acetaminophen 650 mg 02/11/17 18:07 02/12/17 20:14 Tylenol PO 650 mg Q4HR PRN Administration Pain 1 to 4 Carvedilol 3.125 mg 02/12/17 17:00 02/13/17 08:56 Coreg PO 3.125 mg BID DIEGO Administration Digoxin 125 mcg 02/13/17 09:00 02/13/17 08:56 Lanoxin PO 125 mcg DAILY DIEGO Administration Docusate Sodium 250 - 500 mg 02/12/17 09:00 02/13/17 08:55 Colace 250mg Capsule PO 250 mg DAILY DIEGO Administration Furosemide 40 mg 02/11/17 21:00 02/13/17 08:58 Lasix Inj 40 Mg Vial IVP 40 mg BID DIEGO Administration Lisinopril 5 mg 02/13/17 09:00 02/13/17 08:56 Zestril PO 5 mg DAILY DIEGO Administration Lorazepam 0.5 mg 02/11/17 21:04 02/12/17 23:58 Ativan Inj IVP 0.5 mg Q2HR PRN Administration Anxiety Lorazepam 1 mg 02/11/17 22:51 02/11/17 23:01 Ativan Inj IVP 1 mg Q30M PRN Administration CIWA > 8 Protocol Nicotine 1 patch 02/12/17 09:00 02/13/17 08:57 Nicoderm TOP 1 patch DAILY DIEGO Administration Polyethylene Glycol 17 gm 02/12/17 09:00 02/13/17 08:57 Miralax PO 17 gm DAILY DIEGO Administration Multivit/Folic Acid/Iron 1 tab 02/12/17 17:00 02/13/17 17:30 Trinatal Rx 1 PO 1 tab DAILY DIEGO Administration Senna 8.6 - 17.2 mg 02/12/17 09:00 02/13/17 08:55 Senokot PO 8.6 mg DAILY DIEGO Administration Sodium Chloride 10 ml 02/11/17 18:07 02/13/17 15:21 Normal Saline Flush 0.9% IVP 10 ml PRN PRN Administration NEEDED PER PROVIDER ORDERS Sodium Chloride 10 ml 02/11/17 22:00 02/13/17 17:31 Normal Saline Flush 0.9% IVP 10 ml Q8HR DIEGO Administration Thiamine HCl 100 mg 02/12/17 17:00 02/13/17 08:56 Vitamin B-1 PO 100 mg DAILY DIEGO Administration Venlafaxine HCl 150 mg 02/12/17 17:00 02/13/17 08:56 Effexor Er PO 150 mg DAILY DIEGO Administration - Lab Result Lab results reviewed: Yes Fish Bone Diagrams: 02/13/17 06:20 02/13/17 06:20 - EKG Results EKG Interpreted Independently: Yes - Diagnostic Imaging Results Diagnostic Imaging Results: positive: Final report reviewed - Additional Planning Condition/Complexity: Guarded My Orders: My Active Orders 02/13/17 Evaluate and Treat PT [PT] Routine 02/13/17 06:48 Min Oil/Dimeth/Coconut Oil Crm [Cavilon] 1 applic TOP PRN PRN 02/13/17 09:00 Lisinopril [Zestril] 5 mg PO DAILY 02/13/17 12:30 Telemetry- [RC] Q4HR Vital Signs [RC] Q4HR 02/14/17 05:00 BNP - B-NATRIURETIC PEPTIDE [IAI] DAILYLAB 02/15/17 05:00 BNP - B-NATRIURETIC PEPTIDE [IAI] DAILYLAB 02/16/17 05:00 BNP - B-NATRIURETIC PEPTIDE [IAI] DAILYLAB Consult/Specialty: PT Plan Discussed with:: Patient Time Spent: 31-60 minutes Subjective - Subjective Patient Reports: Other (Confused this morning. States she feels well. Still short of breath with minimal exertion. Denies chest pain.) Nursing Reports: Confused Objective Vital Signs: Vital Signs - 24 hr 02/12/17 02/12/17 02/12/17 19:00 20:43 21:00 Temperature Heart Rate 88 Heart Rate [ 93 91 Radial] Respiratory 24 17 Rate Blood Pressure 114/60 [Left Brachial artery] Blood Pressure 112/51 L [Right Brachial artery] O2 Saturation 100 94 02/12/17 02/12/17 02/13/17 22:20 23:20 00:00 Temperature 36.7 C Heart Rate Heart Rate [ 88 92 90 Radial] Respiratory 19 22 16 Rate Blood Pressure [Left Brachial artery] Blood Pressure 124/42 L 113/44 L 107/48 L [Right Brachial artery] O2 Saturation 96 92 93 02/13/17 02/13/17 02/13/17 01:00 02:01 03:00 Temperature Heart Rate Heart Rate [ 86 89 87 Radial] Respiratory 14 16 19 Rate Blood Pressure [Left Brachial artery] Blood Pressure 105/51 L 110/50 L 117/51 L [Right Brachial artery] O2 Saturation 99 98 99 02/13/17 02/13/17 02/13/17 04:00 05:00 07:00 Temperature 36.5 C Heart Rate Heart Rate [ 86 92 89 Radial] Respiratory 20 20 15 Rate Blood Pressure [Left Brachial artery] Blood Pressure 112/60 117/52 L 130/67 [Right Brachial artery] O2 Saturation 98 97 96 02/13/17 02/13/17 02/13/17 09:00 11:00 13:00 Temperature Heart Rate Heart Rate [ 98 85 95 Radial] Respiratory 16 16 14 Rate Blood Pressure [Left Brachial artery] Blood Pressure 127/67 112/52 L 121/65 [Right Brachial artery] O2 Saturation 92 98 95 02/13/17 17:00 Temperature 36.7 C Heart Rate Heart Rate [ 91 Radial] Respiratory 16 Rate Blood Pressure [Left Brachial artery] Blood Pressure 102/63 [Right Brachial artery] O2 Saturation 97 Oxygen O2 Source Room air I&O (Last 24 Hrs): Intake and Output Totals x24h 02/11/17 02/12/17 02/13/17 23:59 23:59 23:59 Intake Total 50 240 440 Output Total 450 3130 3820 Balance -400 -2890 -3380 General: Alert, Cooperative, No acute distress, Other (Oriented x1) HEENT: Atraumatic, PERRLA, EOMI, Mucous membr. moist/pink Neck: Supple, No JVD, No thyromegaly, +2 carotid pulse wo bruit, No LAD Lymphatic: no adenopathy Neuro: Alert, Disoriented, Non Focal, CN 2-12 Grossly Intact Cardiovascular: No murmurs, Other (Irregular normal rate) Respiratory: Chest non-tender, Rales (Bibasilar) Abdomen: Normal bowel sounds, Soft, No tenderness, No hepatospenomegaly, No masses Extremities: No clubbing, No cyanosis, Normal pulses, Other (Bilateral LE edema improving) - Results Results: Laboratory Results WBC 5.6 x10^3/uL (4.8-10.8) 02/13/17 06:20 RBC 4.20 10^6/uL (4.20-5.40) 02/13/17 06:20 Hgb 12.2 g/dL (12.0-16.0) 02/13/17 06:20 Hct 37.8 % (37.0-47.0) 02/13/17 06:20 MCV 90.1 fL (81.0-99.0) 02/13/17 06:20 MCH 29.2 pg (27.0-31.0) 02/13/17 06:20 MCHC 32.4 g/dL (32.0-36.0) 02/13/17 06:20 RDW 17.4 % (12.0-15.0) H 02/13/17 06:20 Plt Count 119 10^3/uL (130-450) L 02/13/17 06:20 MPV 8.2 fL (7.9-10.8) 02/13/17 06:20 Neut # 4.4 10^3/uL (1.5-6.6) 02/13/17 06:20 Lymph # 0.7 10^3/uL (1.5-3.5) L 02/13/17 06:20 [place] # 0.4 10^3/uL (0.0-1.0) 02/13/17 06:20 Eos # 0.0 10^3/uL (0.0-0.7) 02/13/17 06:20 Baso # 0.0 10^3/uL (0.0-0.1) 02/13/17 06:20 Absolute Nucleated RBC 0.00 x10^3/uL 02/13/17 06:20 Nucleated RBCs 0.1 /100WBC 02/13/17 06:20 PT 19.9 secs (9.9-12.6) H 02/11/17 16:08 INR 1.8 (0.8-1.2) H 02/11/17 16:08 APTT 25.3 secs (24.9-33.3) 02/11/17 16:08 VBG pH 7.374 (7.31-7.41) 02/12/17 06:52 VBG pCO2 39.6 mmHg (41-51) L 02/12/17 06:52 VBG pO2 182.3 mmHg (25-47) H 02/12/17 06:52 VBG HCO3 22.6 mmol/L (23-28) L 02/12/17 06:52 VBG Total CO2 23.8 mmol/L (24-29) L 02/12/17 06:52 VBG O2 Saturation 99.2 % (60-80) H 02/12/17 06:52 VBG Base Excess -2.4 mmol/L (-2 - +2) L 02/12/17 06:52 Sodium 135 mmol/L (135-145) 02/13/17 06:20 Potassium 3.0 mmol/L (3.5-5.0) L 02/13/17 06:20 Chloride 95 mmol/L (101-111) L 02/13/17 06:20 Carbon Dioxide 29 mmol/L (21-32) 02/13/17 06:20 Anion Gap 11.0 (6-13) 02/13/17 06:20 BUN 45 mg/dL (6-20) H 02/13/17 06:20 Creatinine 1.9 mg/dL (0.4-1.0) H 02/13/17 06:20 Estimated GFR (MDRD) 26 (>89) L 02/13/17 06:20 Glucose 74 mg/dL (70-100) 02/13/17 06:20 POC Whole Bld Glucose 88 mg/dL (70 - 100) 02/12/17 02:42 Lactic Acid 1.0 mmol/L (0.5-2.2) 02/13/17 06:20 Calcium 8.6 mg/dL (8.5-10.3) 02/13/17 06:20 Total Bilirubin 2.3 mg/dL (0.2-1.0) H 02/12/17 03:23 AST 132 IU/L (10-42) H 02/12/17 03:23 ALT 86 IU/L (10-60) H 02/12/17 03:23 Alkaline Phosphatase 136 IU/L (42-121) H 02/12/17 03:23 Ammonia 32.5 umol/L (7-35) 02/12/17 10:27 Total Creatine Kinase 565 IU/L (22-269) H 02/11/17 16:08 Troponin I 0.08 ng/mL (<0.49) 02/12/17 15:32 B-Natriuretic Peptide 1614 pg/mL (5-100) H 02/13/17 06:20 Total Protein 5.9 g/dL (6.7-8.2) L 02/12/17 03:23 Albumin 2.8 g/dL (3.2-5.5) L 02/12/17 03:23 Globulin 3.1 g/dL (2.1-4.2) 02/12/17 03:23 Albumin/Globulin Ratio 0.9 (1.0-2.2) L 02/12/17 03:23 Lipase 23 U/L (22-51) 02/11/17 16:08 Urine Color YELLOW 02/11/17 15:50 Urine Clarity HAZY (CLEAR) 02/11/17 15:50 Urine pH 5.0 PH (5.0-7.5) 02/11/17 15:50 Ur Specific [place] >=1.030 (1.002-1.030) H 02/11/17 15:50 Urine Protein 30 mg/dL (NEGATIVE) H 02/11/17 15:50 Urine Glucose (UA) NEGATIVE mg/dL (NEGATIVE) 02/11/17 15:50 Urine Ketones TRACE mg/dL (NEGATIVE) 02/11/17 15:50 Urine Occult Blood NEGATIVE (NEGATIVE) 02/11/17 15:50 Urine Nitrite NEGATIVE (NEGATIVE) 02/11/17 15:50 Urine Bilirubin NEGATIVE (NEGATIVE) 02/11/17 15:50 Urine Urobilinogen 0.2 (NORMAL) E.U./dL (NORMAL) 02/11/17 15:50 Ur Leukocyte Esterase NEGATIVE (NEGATIVE) 02/11/17 15:50 Urine RBC None Seen /HPF (0-5) 02/11/17 15:50 Urine WBC 0-3 /HPF (0-5) 02/11/17 15:50 Ur Squamous Epith Cells NONE SEEN (<= Few) 02/11/17 15:50 Amorphous Sediment Marked /LPF 02/11/17 15:50 Urine Bacteria None Seen /HPF (None Seen) 02/11/17 15:50 Ur Microscopic Review INDICATED 02/11/17 15:50 Urine Culture Comments NOT INDICATED 02/11/17 15:50 Ethyl Alcohol < 5.0 mg/dL 02/11/17 16:08
[2017-02-14] MEDS: ACETAMINOPHEN 325 MG TABLET PO PRN (02:42)
[2017-02-14 06:35] LABS: BUN - BLOOD UREA NITROGEN 32 mg/dL (6-20); CALCIUM 8.8 mg/dL (8.5-10.3); CARBON DIOXIDE - CO2 33 mmol/L (21-32); CHLORIDE 91 mmol/L (101-111); CREATININE 1.5 mg/dL (0.4-1.0); GFR - MDRD 34 (>89); GLUCOSE 103 mg/dL (70-100); POTASSIUM 3.2 mmol/L (3.5-5.0); SODIUM 136 mmol/L (135-145)
[2017-02-14] MEDS: SODIUM CHLORIDE FLUSH 0.9% 10 ML SYRINGE IVP SCH ×3 (06:49→22:16)
[2017-02-14] MEDS: LORazepam 2 MG/ML SYRINGE IVP PRN (07:36)
[2017-02-14] MEDS: POTASSIUM CHLOR 10 MEQ/100 ML 100 ML IV SCH ×4 (09:07→11:57)
[2017-02-14] MEDS: POLYETHYLENE GLYCOL 3350 17 GM PACKET PO SCH (09:07)
[2017-02-14] MEDS: LISINOPRIL 5 MG TABLET PO SCH (09:08)
[2017-02-14] MEDS: DIGOXIN 125 MCG TABLET PO SCH (09:08)
[2017-02-14] MEDS: DOCUSATE SODIUM 250 MG CAPSULE PO SCH (09:08)
[2017-02-14] MEDS: SENNA 8.6 MG TABLET PO SCH (09:08)
[2017-02-14] MEDS: NICOTINE 14 MG PATCH TOP SCH (09:08)
[2017-02-14] MEDS: PRENATAL VITAMIN TABLET PO SCH (09:08)
[2017-02-14] MEDS: CARVEDILOL 3.125 MG TABLET PO SCH ×2 (09:08→22:16)
[2017-02-14] MEDS: VENLAFAXINE ER 75 MG CAPSULE PO SCH (09:08)
[2017-02-14] MEDS: FUROSEMIDE 40 MG/4 ML VIAL IVP SCH ×2 (09:09→22:16)
[2017-02-14] MEDS: THIAMINE 100 MG TABLET PO SCH (09:09)
[2017-02-14] MEDS: SENNA 8.6 MG TABLET PO PRN (22:16)
[2017-02-15] MEDS: SODIUM CHLORIDE FLUSH 0.9% 10 ML SYRINGE IVP SCH ×2 (06:01→08:22)
[2017-02-15] MEDS: SENNA 8.6 MG TABLET PO PRN (06:01)
[2017-02-15 06:34] LABS: CALCIUM 8.7 mg/dL (8.5-10.3); CREATININE 1.2 mg/dL (0.4-1.0); POTASSIUM 2.8 mmol/L (3.5-5.0)
[2017-02-15 07:02] LABS: MAGNESIUM 1.1 mg/dL (1.7-2.8); PHOSPHORUS 3.5 mg/dL (2.5-4.6)
[2017-02-15] MEDS: POTASSIUM CHLOR 10 MEQ/100 ML 100 ML IV SCH ×6 (07:22→12:12)
[2017-02-15] MEDS: NICOTINE 14 MG PATCH TOP SCH (08:16)
[2017-02-15] MEDS: HYDROcod/ACETAM 5/325 MG TABLET PO PRN (08:20)
[2017-02-15] MEDS: POLYETHYLENE GLYCOL 3350 17 GM PACKET PO SCH (08:21)
[2017-02-15] MEDS: THIAMINE 100 MG TABLET PO SCH (08:21)
[2017-02-15] MEDS: LISINOPRIL 5 MG TABLET PO SCH (08:21)
[2017-02-15] MEDS: DIGOXIN 125 MCG TABLET PO SCH (08:21)
[2017-02-15] MEDS: VENLAFAXINE ER 75 MG CAPSULE PO SCH (08:21)
[2017-02-15] MEDS: PRENATAL VITAMIN TABLET PO SCH (08:21)
[2017-02-15] MEDS: CARVEDILOL 3.125 MG TABLET PO SCH (08:21)
[2017-02-15] MEDS: DOCUSATE SODIUM 250 MG CAPSULE PO SCH (08:21)
[2017-02-15] MEDS: FUROSEMIDE 40 MG/4 ML VIAL IVP SCH (08:22)
[2017-02-15] MEDS ORDERED: MAGNESIUM SULFATE 2 GRAM 50 ML IV ONE (10:00)
[2017-02-15] MEDS ORDERED: MAGNESIUM SULFATE 2 GRAM 50 ML IV SCH ×3 (13:00→17:00)
[2017-02-16] MEDS: CARVEDILOL 3.125 MG TABLET PO SCH ×3 (01:12→20:13)
[2017-02-16] MEDS: SODIUM CHLORIDE FLUSH 0.9% 10 ML SYRINGE IVP SCH ×4 (01:12→20:13)
[2017-02-16 06:17] LABS: EOSINOPHILS # (AUTO) 0.1 10^3/uL (0.0-0.7); EOSINOPHILS % (AUTO) 1.3 %; HCT - HEMATOCRIT 39.9 % (37.0-47.0); HGB - HEMOGLOBIN 12.8 g/dL (12.0-16.0); LYMPHOCYTES # (AUTO) 1.2 10^3/uL (1.5-3.5); LYMPHOCYTES % (AUTO) 25.2 %; MEAN CORPUSCULAR HEMOGLOBIN 28.7 pg (27.0-31.0); MEAN CORPUSCULAR VOLUME 89.6 fL (81.0-99.0); MEAN PLATELET VOLUME 7.9 fL (7.9-10.8); MONOCYTES # (AUTO) 0.7 10^3/uL (0.0-1.0); MONOCYTES % (AUTO) 14.9 %; NEUTROPHILS # (AUTO) 2.8 10^3/uL (1.5-6.6); NEUTROPHILS % (AUTO) 57.6 %; NUCLEATED RED BLOOD CELLS AUTO 0.1 /100WBC; RED BLOOD COUNT 4.45 10^6/uL (4.20-5.40); RED CELL DISTRIBUTION WIDTH 17.9 % (12.0-15.0); UNCORRECTED WHITE BLOOD COUNT 4.8 x10^3/uL; WHITE BLOOD COUNT 4.8 x10^3/uL (4.8-10.8)
[2017-02-16 06:32] LABS: CALCIUM 8.6 mg/dL (8.5-10.3); POTASSIUM 3.2 mmol/L (3.5-5.0)
--- NOTE | 2017-02-16 07:49 | PROVIDER PROGRESS NOTE ---
Assessment/Plan - Problem List (1) Acute encephalopathy Assessment/Plan: Appears likely to be secondary to medication as patient received zyprexa and ativan on first day of admission Became unresponsive and had decreased respiratory drive CXR showed pulmonary edema but no focal infiltrates Given Flumazenil CT head negative Ammonia level normal Resolved Patient does have some confusion from times but according to family this is her baseline confusion she appears to have some dementia (2) Acute respiratory failure with hypoxia Assessment/Plan: Likely secondary to number 1 leading to decreased respiratory drive Off BiPAP Resolved (3) Atrial fibrillation with RVR Assessment/Plan: Presented with A fib in rvr HR controlled Off dilt drip Continue PO dig and coreg CHADS2 score 1 no coumadin Start ASA (4) CHF exacerbation Qualifiers: Congestive heart failure type: unspecified congestive heart failure type Qualified Code(s): I50.9 - Heart failure, unspecified Assessment/Plan: Low normal EF on Echo Presented with a fib rvr and hypoxia with LE edema Looked to be in CHF exacerbation likely secondary to uncontrolled a fib rvr Placed on dilt drip and rate now controlled Placed on IV lasix with good out put and BNP improving On optimal treatment with coreg, lisinopril and digoxin Improving (5) Elevated LFTs Assessment/Plan: Likely secondary to fatty liver as seen on previous CT abd Patient is a drinker could be developing cirrhosis as she has an INR of 1.8 and elevated Bili Ultrasound of abd showed no cirrhosis but did show ascites LFTs remained stable She likely had alcoholic hepatitis (6) Hyponatremia Assessment/Plan: Likely hypervolemic hyponatremia On IV lasix Resolved (7) CONNIE (acute kidney injury) Assessment/Plan: 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 with no baseline rooter operator in our system Assumed to be acute kidney injury likely cardio-renal Given IV lasix Distribution Technician improved to 1.5 Improving (8) Alcohol abuse Assessment/Plan: Drinks 3-4 gin and tonics daily On CIWA and still scoring 5-10 Will continue to monitor Does not appear to be going into DTs Patient seen by PT and they recommend SNF family would like for her to go to SNF in [facility] - Current Meds Current Meds: Current Medications Generic Name Dose Route Start Last Admin Trade Name Freq PRN Reason Stop Dose Admin Acetaminophen 650 mg 02/11/17 18:07 02/14/17 02:42 Tylenol PO 650 mg Q4HR PRN Administration Pain 1 to 4 Acetaminophen/Hydrocodone [place] 1 tab 02/11/17 18:07 02/15/17 08:20 [place] 5/325 PO 1 tab Q4HR PRN Administration Pain 5 to 7 Carvedilol 3.125 mg 02/12/17 17:00 02/16/17 01:12 Coreg PO Not Given BID DIEGO Digoxin 125 mcg 02/13/17 09:00 02/15/17 08:21 Lanoxin PO 125 mcg DAILY DIEGO Administration Docusate Sodium 250 - 500 mg 02/12/17 09:00 02/15/17 08:21 Colace 250mg Capsule PO 500 mg DAILY DIEGO Administration Lisinopril 5 mg 02/13/17 09:00 02/15/17 08:21 Zestril PO 5 mg DAILY DIEGO Administration Lorazepam 1 mg 02/11/17 22:51 02/14/17 07:36 Ativan Inj IVP 1 mg Q30M PRN Administration CIWA > 8 Protocol Nicotine 1 patch 02/12/17 09:00 02/15/17 08:16 Nicoderm TOP 1 patch DAILY DIEGO Administration Polyethylene Glycol 17 gm 02/12/17 09:00 02/15/17 08:21 Miralax PO 17 gm DAILY DIEGO Administration Multivit/Folic Acid/Iron 1 tab 02/12/17 17:00 02/15/17 08:21 Trinatal Rx 1 PO 1 tab DAILY DIEGO Administration Sodium Chloride 10 ml 02/11/17 18:07 02/13/17 15:21 Normal Saline Flush 0.9% IVP 10 ml PRN PRN Administration NEEDED PER PROVIDER ORDERS Sodium Chloride 10 ml 02/11/17 22:00 02/16/17 06:46 Normal Saline Flush 0.9% IVP Not Given Q8HR DIEGO Thiamine HCl 100 mg 02/12/17 17:00 02/15/17 08:21 Vitamin B-1 PO 100 mg DAILY DIEGO Administration Venlafaxine HCl 150 mg 02/12/17 17:00 02/15/17 08:21 Effexor Er PO 150 mg DAILY DIEGO Administration - Lab Result Lab results reviewed: Yes Fish Bone Diagrams: 02/16/17 05:35 02/16/17 05:35 - EKG Results EKG Interpreted Independently: Yes - Diagnostic Imaging Results Diagnostic Imaging Results: positive: Final report reviewed - Additional Planning Condition/Complexity: Improved My Orders: My Active Orders 02/16/17 08:00 Magnesium Hydroxide [Milk of Magnesia] 2,400 - 4,800 mg PO ONCE ONE Consult/Specialty: PT Plan Discussed with:: Patient, Family Time Spent: 31-60 minutes Subjective - Subjective Patient Reports: Resting Comfortably (Patient appears calm, confused at times. She denies any chest pain or shortness of breath. She did not have any fevers.) Nursing Reports: Confused Objective Vital Signs: Vital Signs - 24 hr 02/15/17 02/15/17 02/16/17 08:47 12:08 04:45 Temperature 36.4 C L 36.6 C 37.0 C Heart Rate [ 80 103 H 89 Radial] Respiratory 18 16 16 Rate Blood Pressure 104/65 117/75 125/79 [Right Brachial artery] O2 Saturation 93 94 92 Oxygen O2 Source Room air I&O (Last 24 Hrs): Intake and Output Totals x24h 02/14/17 02/15/17 02/16/17 23:59 23:59 23:59 Intake Total 825 640 150 Output Total 3900 2800 300 Balance -3075 -2160 -150 General: Alert, Cooperative, No acute distress, Other (Oriented x 2) HEENT: Atraumatic, PERRLA, EOMI, Mucous membr. moist/pink Neck: Supple, No JVD, No thyromegaly, +2 carotid pulse wo bruit, No LAD Lymphatic: no adenopathy Neuro: Alert, Non Focal, CN 2-12 Grossly Intact Cardiovascular: Other (Irregular) Respiratory: Chest non-tender, No respiratory distress, Rales (Improved) Abdomen: Normal bowel sounds, Soft, No tenderness, No hepatospenomegaly Extremities: No clubbing, No cyanosis, No edema, Normal pulses Skin: No rashes, No breakdown - Results Results: Laboratory Results WBC 4.8 x10^3/uL (4.8-10.8) 02/16/17 05:35 RBC 4.45 10^6/uL (4.20-5.40) 02/16/17 05:35 Hgb 12.8 g/dL (12.0-16.0) 02/16/17 05:35 Hct 39.9 % (37.0-47.0) 02/16/17 05:35 MCV 89.6 fL (81.0-99.0) 02/16/17 05:35 MCH 28.7 pg (27.0-31.0) 02/16/17 05:35 MCHC 32.0 g/dL (32.0-36.0) 02/16/17 05:35 RDW 17.9 % (12.0-15.0) H 02/16/17 05:35 Plt Count 123 10^3/uL (130-450) L 02/16/17 05:35 MPV 7.9 fL (7.9-10.8) 02/16/17 05:35 Neut # 2.8 10^3/uL (1.5-6.6) 02/16/17 05:35 Lymph # 1.2 10^3/uL (1.5-3.5) L 02/16/17 05:35 [place] # 0.7 10^3/uL (0.0-1.0) 02/16/17 05:35 Eos # 0.1 10^3/uL (0.0-0.7) 02/16/17 05:35 Baso # 0.0 10^3/uL (0.0-0.1) 02/16/17 05:35 Absolute Nucleated RBC 0.01 x10^3/uL 02/16/17 05:35 Nucleated RBCs 0.1 /100WBC 02/16/17 05:35 PT 19.9 secs (9.9-12.6) H 02/11/17 16:08 INR 1.8 (0.8-1.2) H 02/11/17 16:08 APTT 25.3 secs (24.9-33.3) 02/11/17 16:08 VBG pH 7.374 (7.31-7.41) 02/12/17 06:52 VBG pCO2 39.6 mmHg (41-51) L 02/12/17 06:52 VBG pO2 182.3 mmHg (25-47) H 02/12/17 06:52 VBG HCO3 22.6 mmol/L (23-28) L 02/12/17 06:52 VBG Total CO2 23.8 mmol/L (24-29) L 02/12/17 06:52 VBG O2 Saturation 99.2 % (60-80) H 02/12/17 06:52 VBG Base Excess -2.4 mmol/L (-2 - +2) L 02/12/17 06:52 Sodium 136 mmol/L (135-145) 02/16/17 05:35 Potassium 3.2 mmol/L (3.5-5.0) L 02/16/17 05:35 Chloride 88 mmol/L (101-111) L 02/16/17 05:35 Carbon Dioxide 40 mmol/L (21-32) H* 02/16/17 05:35 Anion Gap 8.0 (6-13) 02/16/17 05:35 BUN 17 mg/dL (6-20) 02/16/17 05:35 Creatinine 1.0 mg/dL (0.4-1.0) 02/16/17 05:35 Estimated GFR (MDRD) 55 (>89) L 02/16/17 05:35 Glucose 104 mg/dL (70-100) H 02/16/17 05:35 POC Whole Bld Glucose 88 mg/dL (70 - 100) 02/12/17 02:42 Lactic Acid 1.0 mmol/L (0.5-2.2) 02/13/17 06:20 Calcium 8.6 mg/dL (8.5-10.3) 02/16/17 05:35 Phosphorus 3.5 mg/dL (2.5-4.6) 02/15/17 05:45 Magnesium 1.1 mg/dL (1.7-2.8) L 02/15/17 05:45 Total Bilirubin 2.3 mg/dL (0.2-1.0) H 02/12/17 03:23 AST 132 IU/L (10-42) H 02/12/17 03:23 ALT 86 IU/L (10-60) H 02/12/17 03:23 Alkaline Phosphatase 136 IU/L (42-121) H 02/12/17 03:23 Ammonia 32.5 umol/L (7-35) 02/12/17 10:27 Total Creatine Kinase 565 IU/L (22-269) H 02/11/17 16:08 Troponin I 0.08 ng/mL (<0.49) 02/12/17 15:32 B-Natriuretic Peptide 998 pg/mL (5-100) H 02/16/17 05:35 Total Protein 5.9 g/dL (6.7-8.2) L 02/12/17 03:23 Albumin 2.8 g/dL (3.2-5.5) L 02/12/17 03:23 Globulin 3.1 g/dL (2.1-4.2) 02/12/17 03:23 Albumin/Globulin Ratio 0.9 (1.0-2.2) L 02/12/17 03:23 Lipase 23 U/L (22-51) 02/11/17 16:08 Urine Color YELLOW 02/11/17 15:50 Urine Clarity HAZY (CLEAR) 02/11/17 15:50 Urine pH 5.0 PH (5.0-7.5) 02/11/17 15:50 Ur Specific [place] >=1.030 (1.002-1.030) H 02/11/17 15:50 Urine Protein 30 mg/dL (NEGATIVE) H 02/11/17 15:50 Urine Glucose (UA) NEGATIVE mg/dL (NEGATIVE) 02/11/17 15:50 Urine Ketones TRACE mg/dL (NEGATIVE) 02/11/17 15:50 Urine Occult Blood NEGATIVE (NEGATIVE) 02/11/17 15:50 Urine Nitrite NEGATIVE (NEGATIVE) 02/11/17 15:50 Urine Bilirubin NEGATIVE (NEGATIVE) 02/11/17 15:50 Urine Urobilinogen 0.2 (NORMAL) E.U./dL (NORMAL) 02/11/17 15:50 Ur Leukocyte Esterase NEGATIVE (NEGATIVE) 02/11/17 15:50 Urine RBC None Seen /HPF (0-5) 02/11/17 15:50 Urine WBC 0-3 /HPF (0-5) 02/11/17 15:50 Ur Squamous Epith Cells NONE SEEN (<= Few) 02/11/17 15:50 Amorphous Sediment Marked /LPF 02/11/17 15:50 Urine Bacteria None Seen /HPF (None Seen) 02/11/17 15:50 Ur Microscopic Review INDICATED 02/11/17 15:50 Urine Culture Comments NOT INDICATED 02/11/17 15:50 Last Dose Date UNK 02/14/17 05:21 Last Dose Time UNK 02/14/17 05:21 Digoxin 1.3 ng/mL 02/14/17 05:21 Ethyl Alcohol < 5.0 mg/dL 02/11/17 16:08 Hepatitis A IgM Ab NON-REACTIVE (NON-REACTIVE) 02/12/17 08:05 Hep Bs Antigen NON-REACTIVE (NON-REACTIVE) 02/12/17 08:05 Hep B Core IgM Ab NON-REACTIVE (NON-REACTIVE) 02/12/17 08:05 Hepatitis C Antibody NON-REACTIVE (NON-REACTIVE) 02/12/17 08:05 Hep C Ab Signal/Cutoff 0.00 (<1.00) 02/12/17 08:05
--- NOTE | 2017-02-16 07:54 | PROVIDER PROGRESS NOTE ---
Assessment/Plan - Problem List (1) Acute encephalopathy Assessment/Plan: Appears likely to be secondary to medication as patient received zyprexa and ativan on first day of admission Became unresponsive and had decreased respiratory drive CXR showed pulmonary edema but no focal infiltrates Given Flumazenil CT head negative Ammonia level normal Resolved (2) Acute respiratory failure with hypoxia Assessment/Plan: Likely secondary to number 1 leading to decreased respiratory drive Off BiPAP Resolved (3) Atrial fibrillation with RVR Assessment/Plan: Presented with A fib in rvr HR controlled Off dilt drip Continue PO dig and coreg CHADS2 score 1 no coumadin (4) CHF exacerbation Qualifiers: Congestive heart failure type: unspecified congestive heart failure type Qualified Code(s): I50.9 - Heart failure, unspecified Assessment/Plan: Low normal EF on Echo Presented with a fib rvr and hypoxia with LE edema Looked to be in CHF exacerbation likely secondary to uncontrolled a fib rvr Placed on dilt drip and rate now controlled Placed on IV lasix with good out put and BNP improving On optimal treatment with coreg, lisinopril and digoxin Continues to improve (5) Elevated LFTs Assessment/Plan: Likely secondary to fatty liver as seen on previous CT abd Patient is a drinker could be developing cirrhosis as she has an INR of 1.8 and elevated Bili Ultrasound of abd showed no cirrhosis but did show ascites LFTs remained stable She likely had alcoholic hepatitis which is improving (6) Hyponatremia Assessment/Plan: Likely hypervolemic hyponatremia On IV lasix Resolved (7) CONNIE (acute kidney injury) Assessment/Plan: [place] elevated at 2.2 with no baseline riveter portable machine in our system Assumed to be acute kidney injury likely cardio-renal Given IV lasix [place] improved to 1.5 Improving (8) Alcohol abuse Assessment/Plan: Drinks 3-4 gin and tonics daily On CIWA and still scoring 8-10 Will continue to monitor Does not appear to be going into DTs Once her CIWA scores decrease will stop ativan and CIWA She cannot be placemed till CIWA stopped Patient seen by PT and they recommend SNF family would like for her to go to SNF in [facility] - Current Meds Current Meds: Current Medications Generic Name Dose Route Start Last Admin Trade Name Freq PRN Reason Stop Dose Admin Acetaminophen 650 mg 02/11/17 18:07 02/14/17 02:42 Tylenol PO 650 mg Q4HR PRN Administration Pain 1 to 4 Acetaminophen/Hydrocodone Bitart 1 tab 02/11/17 18:07 02/15/17 08:20 [place] 5/325 PO 1 tab Q4HR PRN Administration Pain 5 to 7 Carvedilol 3.125 mg 02/12/17 17:00 02/16/17 01:12 Coreg PO Not Given BID DIEGO Digoxin 125 mcg 02/13/17 09:00 02/15/17 08:21 Lanoxin PO 125 mcg DAILY DIEGO Administration Docusate Sodium 250 - 500 mg 02/12/17 09:00 02/15/17 08:21 Colace 250mg Capsule PO 500 mg DAILY DIEGO Administration Lisinopril 5 mg 02/13/17 09:00 02/15/17 08:21 Zestril PO 5 mg DAILY DIEGO Administration Lorazepam 1 mg 02/11/17 22:51 02/14/17 07:36 Ativan Inj IVP 1 mg Q30M PRN Administration CIWA > 8 Protocol Nicotine 1 patch 02/12/17 09:00 02/15/17 08:16 Nicoderm TOP 1 patch DAILY DIEGO Administration Polyethylene Glycol 17 gm 02/12/17 09:00 02/15/17 08:21 Miralax PO 17 gm DAILY DIEGO Administration Multivit/Folic Acid/Iron 1 tab 02/12/17 17:00 02/15/17 08:21 Trinatal Rx 1 PO 1 tab DAILY DIEGO Administration Sodium Chloride 10 ml 02/11/17 18:07 02/13/17 15:21 Normal Saline Flush 0.9% IVP 10 ml PRN PRN Administration NEEDED PER PROVIDER ORDERS Sodium Chloride 10 ml 02/11/17 22:00 02/16/17 06:46 Normal Saline Flush 0.9% IVP Not Given Q8HR DIEGO Thiamine HCl 100 mg 02/12/17 17:00 02/15/17 08:21 Vitamin B-1 PO 100 mg DAILY DIEGO Administration Venlafaxine HCl 150 mg 02/12/17 17:00 02/15/17 08:21 Effexor Er PO 150 mg DAILY DIEGO Administration - Lab Result Lab results reviewed: Yes Fish Bone Diagrams: 02/16/17 05:35 02/16/17 05:35 - EKG Results EKG Interpreted Independently: Yes - Diagnostic Imaging Results Diagnostic Imaging Results: positive: Final report reviewed - Additional Planning Condition/Complexity: Improved My Orders: My Active Orders 02/16/17 LIVER PANEL [CHEM] Routine 02/16/17 08:00 Magnesium Hydroxide [Milk of Magnesia] 2,400 - 4,800 mg PO ONCE ONE 02/16/17 09:00 Aspirin Chewable [St Sam Aspirin] 81 mg PO DAILY Consult/Specialty: PT Plan Discussed with:: Patient Time Spent: 31-60 minutes Subjective - Subjective Patient Reports: Other (Mild confusion, does not remember me, she otherwise has no complaints but does appear to be shaky. No fevers, no shortness of breath.) Nursing Reports: No Complaints Objective Vital Signs: Vital Signs - 24 hr 02/15/17 02/15/17 02/16/17 08:47 12:08 04:45 Temperature 36.4 C L 36.6 C 37.0 C Heart Rate [ 80 103 H 89 Radial] Respiratory 18 16 16 Rate Blood Pressure 104/65 117/75 125/79 [Right Brachial artery] O2 Saturation 93 94 92 Oxygen O2 Source Room air I&O (Last 24 Hrs): Intake and Output Totals x24h 02/14/17 02/15/17 02/16/17 23:59 23:59 23:59 Intake Total 825 640 150 Output Total 3900 2800 300 Balance -3075 -2160 -150 General: Alert, Cooperative, Mild distress (shaky, confused) HEENT: Atraumatic, PERRLA, EOMI, Mucous membr. moist/pink Neck: Supple, No JVD, No thyromegaly, +2 carotid pulse wo bruit, No LAD Lymphatic: no adenopathy Neuro: Alert, Non Focal, CN 2-12 Grossly Intact, Other (Oriented x2) Cardiovascular: Other (Irregular) Respiratory: Chest non-tender, No respiratory distress, Rales (bases) Abdomen: Normal bowel sounds, Soft, No tenderness, No hepatospenomegaly Extremities: No clubbing, No cyanosis, No edema, Normal pulses, No tenderness/ swelling Skin: No rashes, No breakdown - Results Results: Laboratory Results WBC 4.8 x10^3/uL (4.8-10.8) 02/16/17 05:35 RBC 4.45 10^6/uL (4.20-5.40) 02/16/17 05:35 Hgb 12.8 g/dL (12.0-16.0) 02/16/17 05:35 Hct 39.9 % (37.0-47.0) 02/16/17 05:35 MCV 89.6 fL (81.0-99.0) 02/16/17 05:35 MCH 28.7 pg (27.0-31.0) 02/16/17 05:35 MCHC 32.0 g/dL (32.0-36.0) 02/16/17 05:35 RDW 17.9 % (12.0-15.0) H 02/16/17 05:35 Plt Count 123 10^3/uL (130-450) L 02/16/17 05:35 MPV 7.9 fL (7.9-10.8) 02/16/17 05:35 Neut # 2.8 10^3/uL (1.5-6.6) 02/16/17 05:35 Lymph # 1.2 10^3/uL (1.5-3.5) L 02/16/17 05:35 [place] # 0.7 10^3/uL (0.0-1.0) 02/16/17 05:35 Eos # 0.1 10^3/uL (0.0-0.7) 02/16/17 05:35 Baso # 0.0 10^3/uL (0.0-0.1) 02/16/17 05:35 Absolute Nucleated RBC 0.01 x10^3/uL 02/16/17 05:35 Nucleated RBCs 0.1 /100WBC 02/16/17 05:35 PT 19.9 secs (9.9-12.6) H 02/11/17 16:08 INR 1.8 (0.8-1.2) H 02/11/17 16:08 APTT 25.3 secs (24.9-33.3) 02/11/17 16:08 VBG pH 7.374 (7.31-7.41) 02/12/17 06:52 VBG pCO2 39.6 mmHg (41-51) L 02/12/17 06:52 VBG pO2 182.3 mmHg (25-47) H 02/12/17 06:52 VBG HCO3 22.6 mmol/L (23-28) L 02/12/17 06:52 VBG Total CO2 23.8 mmol/L (24-29) L 02/12/17 06:52 VBG O2 Saturation 99.2 % (60-80) H 02/12/17 06:52 VBG Base Excess -2.4 mmol/L (-2 - +2) L 02/12/17 06:52 Sodium 136 mmol/L (135-145) 02/16/17 05:35 Potassium 3.2 mmol/L (3.5-5.0) L 02/16/17 05:35 Chloride 88 mmol/L (101-111) L 02/16/17 05:35 Carbon Dioxide 40 mmol/L (21-32) H* 02/16/17 05:35 Anion Gap 8.0 (6-13) 02/16/17 05:35 BUN 17 mg/dL (6-20) 02/16/17 05:35 Creatinine 1.0 mg/dL (0.4-1.0) 02/16/17 05:35 Estimated GFR (MDRD) 55 (>89) L 02/16/17 05:35 Glucose 104 mg/dL (70-100) H 02/16/17 05:35 POC Whole Bld Glucose 88 mg/dL (70 - 100) 02/12/17 02:42 Lactic Acid 1.0 mmol/L (0.5-2.2) 02/13/17 06:20 Calcium 8.6 mg/dL (8.5-10.3) 02/16/17 05:35 Phosphorus 3.5 mg/dL (2.5-4.6) 02/15/17 05:45 Magnesium 1.1 mg/dL (1.7-2.8) L 02/15/17 05:45 Total Bilirubin 2.3 mg/dL (0.2-1.0) H 02/12/17 03:23 AST 132 IU/L (10-42) H 02/12/17 03:23 ALT 86 IU/L (10-60) H 02/12/17 03:23 Alkaline Phosphatase 136 IU/L (42-121) H 02/12/17 03:23 Ammonia 32.5 umol/L (7-35) 02/12/17 10:27 Total Creatine Kinase 565 IU/L (22-269) H 02/11/17 16:08 Troponin I 0.08 ng/mL (<0.49) 02/12/17 15:32 B-Natriuretic Peptide 998 pg/mL (5-100) H 02/16/17 05:35 Total Protein 5.9 g/dL (6.7-8.2) L 02/12/17 03:23 Albumin 2.8 g/dL (3.2-5.5) L 02/12/17 03:23 Globulin 3.1 g/dL (2.1-4.2) 02/12/17 03:23 Albumin/Globulin Ratio 0.9 (1.0-2.2) L 02/12/17 03:23 Lipase 23 U/L (22-51) 02/11/17 16:08 Urine Color YELLOW 02/11/17 15:50 Urine Clarity HAZY (CLEAR) 02/11/17 15:50 Urine pH 5.0 PH (5.0-7.5) 02/11/17 15:50 Ur Specific [place] >=1.030 (1.002-1.030) H 02/11/17 15:50 Urine Protein 30 mg/dL (NEGATIVE) H 02/11/17 15:50 Urine Glucose (UA) NEGATIVE mg/dL (NEGATIVE) 02/11/17 15:50 Urine Ketones TRACE mg/dL (NEGATIVE) 02/11/17 15:50 Urine Occult Blood NEGATIVE (NEGATIVE) 02/11/17 15:50 Urine Nitrite NEGATIVE (NEGATIVE) 02/11/17 15:50 Urine Bilirubin NEGATIVE (NEGATIVE) 02/11/17 15:50 Urine Urobilinogen 0.2 (NORMAL) E.U./dL (NORMAL) 02/11/17 15:50 Ur Leukocyte Esterase NEGATIVE (NEGATIVE) 02/11/17 15:50 Urine RBC None Seen /HPF (0-5) 02/11/17 15:50 Urine WBC 0-3 /HPF (0-5) 02/11/17 15:50 Ur Squamous Epith Cells NONE SEEN (<= Few) 02/11/17 15:50 Amorphous Sediment Marked /LPF 02/11/17 15:50 Urine Bacteria None Seen /HPF (None Seen) 02/11/17 15:50 Ur Microscopic Review INDICATED 02/11/17 15:50 Urine Culture Comments NOT INDICATED 02/11/17 15:50 Last Dose Date K 02/14/17 05:21 Last Dose Time [facility] 02/14/17 05:21 Digoxin 1.3 ng/mL 02/14/17 05:21 Ethyl Alcohol < 5.0 mg/dL 02/11/17 16:08 Hepatitis A IgM Ab NON-REACTIVE (NON-REACTIVE) 02/12/17 08:05 Hep Bs Antigen NON-REACTIVE (NON-REACTIVE) 02/12/17 08:05 Hep B Core IgM Ab NON-REACTIVE (NON-REACTIVE) 02/12/17 08:05 Hepatitis C Antibody NON-REACTIVE (NON-REACTIVE) 02/12/17 08:05 Hep C Ab Signal/Cutoff 0.00 (<1.00) 02/12/17 08:05
[2017-02-16] MEDS ORDERED: MAGNESIUM HYDROXIDE 2,400 MG/30 ML UDC PO ONE (08:00)
[2017-02-16 08:41] LABS: BILIRUBIN,DIRECT 0.6 mg/dL (0.1-0.5); BILIRUBIN,TOTAL 1.5 mg/dL (0.2-1.0); TOTAL PROTEIN 5.2 g/dL (6.7-8.2)
[2017-02-16] MEDS: NICOTINE 14 MG PATCH TOP SCH (08:43)
[2017-02-16] MEDS: THIAMINE 100 MG TABLET PO SCH (08:44)
[2017-02-16] MEDS: DIGOXIN 125 MCG TABLET PO SCH (08:44)
[2017-02-16] MEDS: POLYETHYLENE GLYCOL 3350 17 GM PACKET PO SCH (08:44)
[2017-02-16] MEDS: VENLAFAXINE ER 75 MG CAPSULE PO SCH (08:44)
[2017-02-16] MEDS: ACETAMINOPHEN 325 MG TABLET PO PRN (08:44)
[2017-02-16] MEDS: DOCUSATE SODIUM 250 MG CAPSULE PO SCH (08:44)
[2017-02-16] MEDS: ASPIRIN CHEW 81 MG TABLET PO SCH (08:45)
[2017-02-16] MEDS: LISINOPRIL 5 MG TABLET PO SCH (08:45)
[2017-02-16] MEDS: PRENATAL VITAMIN TABLET PO SCH (08:45)
[2017-02-17 06:11] LABS: CALCIUM 8.9 mg/dL (8.5-10.3); CREATININE 0.9 mg/dL (0.4-1.0); POTASSIUM 3.5 mmol/L (3.5-5.0)
[2017-02-17] MEDS: SODIUM CHLORIDE FLUSH 0.9% 10 ML SYRINGE IVP SCH ×3 (06:31→20:06)
[2017-02-17] MEDS: ACETAMINOPHEN 325 MG TABLET PO PRN (08:17)
[2017-02-17] MEDS: SENNA 8.6 MG TABLET PO SCH (08:17)
[2017-02-17] MEDS: LISINOPRIL 5 MG TABLET PO SCH (08:17)
[2017-02-17] MEDS: DIGOXIN 125 MCG TABLET PO SCH (08:17)
[2017-02-17] MEDS: ASPIRIN CHEW 81 MG TABLET PO SCH (08:17)
[2017-02-17] MEDS: DOCUSATE SODIUM 250 MG CAPSULE PO SCH (08:17)
[2017-02-17] MEDS: CARVEDILOL 3.125 MG TABLET PO SCH ×2 (08:18→20:06)
[2017-02-17] MEDS: PRENATAL VITAMIN TABLET PO SCH (08:18)
[2017-02-17] MEDS: THIAMINE 100 MG TABLET PO SCH (08:18)
[2017-02-17] MEDS: NICOTINE 14 MG PATCH TOP SCH (08:18)
[2017-02-17] MEDS: VENLAFAXINE ER 75 MG CAPSULE PO SCH (08:18)
[2017-02-17] MEDS: POLYETHYLENE GLYCOL 3350 17 GM PACKET PO SCH (08:18)
[2017-02-17] MEDS ORDERED: MAGNESIUM CITRATE 296 ML BOTTLE PO ONE (12:00)
--- NOTE | 2017-02-17 15:34 | PROVIDER PROGRESS NOTE ---
Assessment/Plan - Problem List (1) Acute encephalopathy Assessment/Plan: Appears likely to be secondary to medication as patient received zyprexa and ativan on first day of admission Became unresponsive and had decreased respiratory drive CXR showed pulmonary edema but no focal infiltrates Given Flumazenil CT head negative Ammonia level normal Resolved Patient is much improved and appears to be at her baseline (2) Acute respiratory failure with hypoxia Assessment/Plan: Likely secondary to number 1 leading to decreased respiratory drive Off BiPAP Resolved (3) Atrial fibrillation with RVR Assessment/Plan: Presented with A fib in rvr Off dilt drip Continue PO dig and coreg CHADS2 score 1 no coumadin On ASA Rate controlled (4) CHF exacerbation Qualifiers: Congestive heart failure type: unspecified congestive heart failure type Qualified Code(s): I50.9 - Heart failure, unspecified Assessment/Plan: Low normal EF on Echo Presented with a fib rvr and hypoxia with LE edema Looked to be in CHF exacerbation likely secondary to uncontrolled a fib rvr Placed on dilt drip and rate now controlled Placed on IV lasix with good out put and BNP improving On optimal treatment with coreg, lisinopril and digoxin Improving Will stop IV lasix today as she appears euvolemic (5) Elevated LFTs Assessment/Plan: Likely secondary to fatty liver as seen on previous CT abd Patient is a drinker could be developing cirrhosis as she has an INR of 1.8 and elevated Bili Ultrasound of abd showed no cirrhosis but did show ascites She likely had alcoholic hepatitis LFTs improved (6) Hyponatremia Assessment/Plan: Likely hypervolemic hyponatremia Resolved with lasix (7) CONNIE (acute kidney injury) Assessment/Plan: [place] elevated at 2.2 with no baseline shirt finisher in our system Assumed to be acute kidney injury likely cardio-renal Given IV lasix [place] improved to 1.0 Resolved (8) Alcohol abuse Assessment/Plan: Drinks 3-4 gin and tonics daily Did not go into withdrawal despite being on CIWA She is now off CIWA and very pleasant She is showing no signs of withdrawal and is very appropriate Patient seen by PT and they recommend SNF family would like for her to go to SNF in [facility] SNF refusing secondary to patient being on CIWA but patient now off CIWA with no signs of withdrawal and is very pleasant and at baseline mental status - Current Meds Current Meds: Current Medications Generic Name Dose Route Start Last Admin Trade Name Freq PRN Reason Stop Dose Admin Acetaminophen 650 mg 02/11/17 18:07 02/17/17 08:17 Tylenol PO 650 mg Q4HR PRN Administration Pain 1 to 4 Acetaminophen/Hydrocodone Bitart 1 tab 02/11/17 18:07 02/15/17 08:20 [place] 5/325 PO 1 tab Q4HR PRN Administration Pain 5 to 7 Aspirin 81 mg 02/16/17 09:00 02/17/17 08:17 [place] Sam Aspirin PO 81 mg DAILY DIEGO Administration Carvedilol 3.125 mg 02/12/17 17:00 02/17/17 08:18 Coreg PO 3.125 mg BID DIEGO Administration Digoxin 125 mcg 02/13/17 09:00 02/17/17 08:17 Lanoxin PO 125 mcg DAILY DIEGO Administration Docusate Sodium 250 - 500 mg 02/12/17 09:00 02/17/17 08:17 Colace 250mg Capsule PO 500 mg DAILY DIEGO Administration Lisinopril 5 mg 02/13/17 09:00 02/17/17 08:17 Zestril PO 5 mg DAILY DIEGO Administration Lorazepam 1 mg 02/11/17 22:51 02/14/17 07:36 Ativan Inj IVP 1 mg Q30M PRN Administration CIWA > 8 Protocol Nicotine 1 patch 02/12/17 09:00 02/17/17 08:18 Nicoderm TOP 1 patch DAILY DIEGO Administration Polyethylene Glycol 17 gm 02/12/17 09:00 02/17/17 08:18 Miralax PO 17 gm DAILY DIEGO Administration Multivit/Folic Acid/Iron 1 tab 02/12/17 17:00 02/17/17 08:18 Trinatal Rx 1 PO 1 tab DAILY DIEGO Administration Senna 8.6 - 17.2 mg 02/17/17 09:00 02/17/17 08:17 Senokot PO 17.2 mg DAILY DIEGO Administration Sodium Chloride 10 ml 02/11/17 18:07 02/13/17 15:21 Normal Saline Flush 0.9% IVP 10 ml PRN PRN Administration NEEDED PER PROVIDER ORDERS Sodium Chloride 10 ml 02/11/17 22:00 02/17/17 08:19 Normal Saline Flush 0.9% IVP 10 ml Q8HR DIEGO Administration Thiamine HCl 100 mg 02/12/17 17:00 02/17/17 08:18 Vitamin B-1 PO 100 mg DAILY DIEGO Administration Venlafaxine HCl 150 mg 02/12/17 17:00 02/17/17 08:18 Effexor Er PO 150 mg DAILY DIEGO Administration - Lab Result Lab results reviewed: Yes Fish Bone Diagrams: 02/16/17 05:35 02/17/17 05:33 - EKG Results EKG Interpreted Independently: Yes EKG Comparison: Changed from prior EKG - Diagnostic Imaging Results Diagnostic Imaging Results: positive: Prelim report reviewed - Additional Planning Condition/Complexity: Improved My Orders: My Active Orders 02/17/17 09:00 Senna [Senokot] 8.6 - 17.2 mg PO DAILY Consult/Specialty: PT Plan Discussed with:: Patient, Family, Case Management Time Spent: 31-60 minutes Subjective - Subjective Patient Reports: Feeling Better, Resting Comfortably (Patient feels well. Denies any shortness of breath. She denies any chest pain. She denies any cough. She had no fevers overnight and is very appropriate.) Nursing Reports: No Complaints Objective Vital Signs: Vital Signs - 24 hr 02/16/17 02/16/17 02/17/17 16:15 21:00 01:00 Temperature 36.9 C 36.9 C 37.1 C Heart Rate [ 84 94 92 Radial] Respiratory 18 18 16 Rate Blood Pressure 113/73 115/72 128/84 H [Right Brachial artery] O2 Saturation 98 96 98 02/17/17 02/17/17 02/17/17 05:00 09:00 13:00 Temperature 37.0 C 37.0 C 36.9 C Heart Rate [ 90 107 H 86 Radial] Respiratory 16 12 18 Rate Blood Pressure 126/74 134/86 H 121/73 [Right Brachial artery] O2 Saturation 96 97 99 Oxygen O2 Source Room air I&O (Last 24 Hrs): Intake and Output Totals x24h 02/15/17 02/16/17 02/17/17 23:59 23:59 23:59 Intake Total 640 1600 360 Output Total 2800 900 375 Balance -2160 700 -15 General: Alert, Oriented x3, Cooperative, No acute distress HEENT: Atraumatic, PERRLA, EOMI, Mucous membr. moist/pink Neck: Supple, No JVD, No thyromegaly, +2 carotid pulse wo bruit, No LAD Lymphatic: no adenopathy Neuro: Alert, Non Focal, CN 2-12 Grossly Intact, Oriented Times 3 Cardiovascular: Regular rate, Normal S1, Normal S2, No murmurs Respiratory: Chest non-tender, No respiratory distress, Breath sounds nml, Rales (faint) Abdomen: Normal bowel sounds, Soft, No tenderness, No hepatospenomegaly Extremities: No clubbing, No cyanosis, Normal pulses, No tenderness/swelling, Other (LE edema improved) Skin: No rashes, No breakdown - Results Results: Laboratory Results WBC 4.8 x10^3/uL (4.8-10.8) 02/16/17 05:35 RBC 4.45 10^6/uL (4.20-5.40) 02/16/17 05:35 Hgb 12.8 g/dL (12.0-16.0) 02/16/17 05:35 Hct 39.9 % (37.0-47.0) 02/16/17 05:35 MCV 89.6 fL (81.0-99.0) 02/16/17 05:35 MCH 28.7 pg (27.0-31.0) 02/16/17 05:35 MCHC 32.0 g/dL (32.0-36.0) 02/16/17 05:35 RDW 17.9 % (12.0-15.0) H 02/16/17 05:35 Plt Count 123 10^3/uL (130-450) L 02/16/17 05:35 MPV 7.9 fL (7.9-10.8) 02/16/17 05:35 Neut # 2.8 10^3/uL (1.5-6.6) 02/16/17 05:35 Lymph # 1.2 10^3/uL (1.5-3.5) L 02/16/17 05:35 [place] # 0.7 10^3/uL (0.0-1.0) 02/16/17 05:35 Eos # 0.1 10^3/uL (0.0-0.7) 02/16/17 05:35 Baso # 0.0 10^3/uL (0.0-0.1) 02/16/17 05:35 Absolute Nucleated RBC 0.01 x10^3/uL 02/16/17 05:35 Nucleated RBCs 0.1 /100WBC 02/16/17 05:35 PT 19.9 secs (9.9-12.6) H 02/11/17 16:08 INR 1.8 (0.8-1.2) H 02/11/17 16:08 APTT 25.3 secs (24.9-33.3) 02/11/17 16:08 VBG pH 7.374 (7.31-7.41) 02/12/17 06:52 VBG pCO2 39.6 mmHg (41-51) L 02/12/17 06:52 VBG pO2 182.3 mmHg (25-47) H 02/12/17 06:52 VBG HCO3 22.6 mmol/L (23-28) L 02/12/17 06:52 VBG Total CO2 23.8 mmol/L (24-29) L 02/12/17 06:52 VBG O2 Saturation 99.2 % (60-80) H 02/12/17 06:52 VBG Base Excess -2.4 mmol/L (-2 - +2) L 02/12/17 06:52 Sodium 138 mmol/L (135-145) 02/17/17 05:33 Potassium 3.5 mmol/L (3.5-5.0) 02/17/17 05:33 Chloride 91 mmol/L (101-111) L 02/17/17 05:33 Carbon Dioxide 39 mmol/L (21-32) H* 02/17/17 05:33 Anion Gap 8.0 (6-13) 02/17/17 05:33 BUN 14 mg/dL (6-20) 02/17/17 05:33 Creatinine 0.9 mg/dL (0.4-1.0) 02/17/17 05:33 Estimated GFR (MDRD) 62 (>89) L 02/17/17 05:33 Glucose 95 mg/dL (70-100) 02/17/17 05:33 POC Whole Bld Glucose 88 mg/dL (70 - 100) 02/12/17 02:42 Lactic Acid 1.0 mmol/L (0.5-2.2) 02/13/17 06:20 Calcium 8.9 mg/dL (8.5-10.3) 02/17/17 05:33 Phosphorus 3.5 mg/dL (2.5-4.6) 02/15/17 05:45 Magnesium 1.1 mg/dL (1.7-2.8) L 02/15/17 05:45 Total Bilirubin 1.5 mg/dL (0.2-1.0) H 02/16/17 05:53 Direct Bilirubin 0.6 mg/dL (0.1-0.5) H 02/16/17 05:53 AST 44 IU/L (10-42) H 02/16/17 05:53 ALT 42 IU/L (10-60) 02/16/17 05:53 Alkaline Phosphatase 123 IU/L (42-121) H 02/16/17 05:53 Ammonia 32.5 umol/L (7-35) 02/12/17 10:27 Total Creatine Kinase 565 IU/L (22-269) H 02/11/17 16:08 Troponin I 0.08 ng/mL (<0.49) 02/12/17 15:32 B-Natriuretic Peptide 998 pg/mL (5-100) H 02/16/17 05:35 Total Protein 5.2 g/dL (6.7-8.2) L 02/16/17 05:53 Albumin 2.3 g/dL (3.2-5.5) L 02/16/17 05:53 Globulin 2.9 g/dL (2.1-4.2) 02/16/17 05:53 Albumin/Globulin Ratio 0.9 (1.0-2.2) L 02/12/17 03:23 Lipase 23 U/L (22-51) 02/11/17 16:08 Urine Color YELLOW 02/11/17 15:50 Urine Clarity HAZY (CLEAR) 02/11/17 15:50 Urine pH 5.0 PH (5.0-7.5) 02/11/17 15:50 Ur Specific [place] >=1.030 (1.002-1.030) H 02/11/17 15:50 Urine Protein 30 mg/dL (NEGATIVE) H 02/11/17 15:50 Urine Glucose (UA) NEGATIVE mg/dL (NEGATIVE) 02/11/17 15:50 Urine Ketones TRACE mg/dL (NEGATIVE) 02/11/17 15:50 Urine Occult Blood NEGATIVE (NEGATIVE) 02/11/17 15:50 Urine Nitrite NEGATIVE (NEGATIVE) 02/11/17 15:50 Urine Bilirubin NEGATIVE (NEGATIVE) 02/11/17 15:50 Urine Urobilinogen 0.2 (NORMAL) E.U./dL (NORMAL) 02/11/17 15:50 Ur Leukocyte Esterase NEGATIVE (NEGATIVE) 02/11/17 15:50 Urine RBC None Seen /HPF (0-5) 02/11/17 15:50 Urine WBC 0-3 /HPF (0-5) 02/11/17 15:50 Ur Squamous Epith Cells NONE SEEN (<= Few) 02/11/17 15:50 Amorphous Sediment Marked /LPF 02/11/17 15:50 Urine Bacteria None Seen /HPF (None Seen) 02/11/17 15:50 Ur Microscopic Review INDICATED 02/11/17 15:50 Urine Culture Comments NOT INDICATED 02/11/17 15:50 Last Dose Date UNK 02/14/17 05:21 Last Dose Time K 02/14/17 05:21 Digoxin 1.3 ng/mL 02/14/17 05:21 Ethyl Alcohol < 5.0 mg/dL 02/11/17 16:08 Hepatitis A IgM Ab NON-REACTIVE (NON-REACTIVE) 02/12/17 08:05 Hep Bs Antigen NON-REACTIVE (NON-REACTIVE) 02/12/17 08:05 Hep B Core IgM Ab NON-REACTIVE (NON-REACTIVE) 02/12/17 08:05 Hepatitis C Antibody NON-REACTIVE (NON-REACTIVE) 02/12/17 08:05 Hep C Ab Signal/Cutoff 0.00 (<1.00) 02/12/17 08:05
--- NOTE | 2017-02-17 15:38 | PROVIDER PROGRESS NOTE ---
Assessment/Plan - Problem List (1) Acute encephalopathy Assessment/Plan: Appears likely to be secondary to medication as patient received zyprexa and ativan on first day of admission Became unresponsive and had decreased respiratory drive CXR showed pulmonary edema but no focal infiltrates Given Flumazenil CT head negative Ammonia level normal Resolved Patient is much improved and appears to be at her baseline (2) Acute respiratory failure with hypoxia Assessment/Plan: Likely secondary to number 1 leading to decreased respiratory drive Off BiPAP Resolved (3) Atrial fibrillation with RVR Assessment/Plan: Presented with A fib in rvr Off dilt drip Continue PO dig and coreg CHADS2 score 1 no coumadin On ASA Rate controlled Discontinue tele (4) CHF exacerbation Qualifiers: Congestive heart failure type: unspecified congestive heart failure type Qualified Code(s): I50.9 - Heart failure, unspecified Assessment/Plan: Low normal EF on Echo Presented with a fib rvr and hypoxia with LE edema Looked to be in CHF exacerbation likely secondary to uncontrolled a fib rvr Placed on dilt drip and rate now controlled Placed on IV lasix with good out put and BNP improving On optimal treatment with coreg, lisinopril and digoxin Improving Lasix stopped Euvolemic (5) Elevated LFTs Assessment/Plan: Likely secondary to fatty liver as seen on previous CT abd Patient is a drinker could be developing cirrhosis as she has an INR of 1.8 and elevated Bili Ultrasound of abd showed no cirrhosis but did show ascites She likely had alcoholic hepatitis LFTs improved (6) Hyponatremia Assessment/Plan: Likely hypervolemic hyponatremia Resolved with lasix (7) CONNIE (acute kidney injury) Assessment/Plan: Mud Jack Nozzleman elevated at 2.2 with no baseline data entry coordinator in our system Assumed to be acute kidney injury likely cardio-renal Given IV lasix Mud Jack Nozzleman improved to 0.9 Resolved (8) Alcohol abuse Assessment/Plan: Drinks 3-4 gin and tonics daily Did not go into withdrawal despite being on CIWA She is now off CIWA and very pleasant She is showing no signs of withdrawal and is very appropriate Counselled and does not want to drink in the future as she realizes its negative effects on her health Patient seen by PT and they recommend SNF family would like for her to go to SNF in [facility] SN[facility] refusing secondary to patient being on CIWA but patient now off CIWA with no signs of withdrawal and is very pleasant and at baseline mental status Awaiting placement. Social work has sent referral to a number of SNFs in the area given that it is the weekend will likely not get placement till Saturday. - Current Meds Current Meds: Current Medications Generic Name Dose Route Start Last Admin Trade Name Freq PRN Reason Stop Dose Admin Acetaminophen 650 mg 02/11/17 18:07 02/17/17 08:17 Tylenol PO 650 mg Q4HR PRN Administration Pain 1 to 4 Acetaminophen/Hydrocodone Bitart 1 tab 02/11/17 18:07 02/15/17 08:20 [place] 5/325 PO 1 tab Q4HR PRN Administration Pain 5 to 7 Aspirin 81 mg 02/16/17 09:00 02/17/17 08:17 [facility] Sam Aspirin PO 81 mg DAILY DIEGO Administration Carvedilol 3.125 mg 02/12/17 17:00 02/17/17 08:18 Coreg PO 3.125 mg BID DIEGO Administration Digoxin 125 mcg 02/13/17 09:00 02/17/17 08:17 Lanoxin PO 125 mcg DAILY DIEGO Administration Docusate Sodium 250 - 500 mg 02/12/17 09:00 02/17/17 08:17 Colace 250mg Capsule PO 500 mg DAILY DIEGO Administration Lisinopril 5 mg 02/13/17 09:00 02/17/17 08:17 Zestril PO 5 mg DAILY DIEGO Administration Lorazepam 1 mg 02/11/17 22:51 02/14/17 07:36 Ativan Inj IVP 1 mg Q30M PRN Administration CIWA > 8 Protocol Nicotine 1 patch 02/12/17 09:00 02/17/17 08:18 Nicoderm TOP 1 patch DAILY DIEGO Administration Polyethylene Glycol 17 gm 02/12/17 09:00 02/17/17 08:18 Miralax PO 17 gm DAILY DIEGO Administration Multivit/Folic Acid/Iron 1 tab 02/12/17 17:00 02/17/17 08:18 Trinatal Rx 1 PO 1 tab DAILY DIEGO Administration Senna 8.6 - 17.2 mg 02/17/17 09:00 02/17/17 08:17 Senokot PO 17.2 mg DAILY DIEGO Administration Sodium Chloride 10 ml 02/11/17 18:07 02/13/17 15:21 Normal Saline Flush 0.9% IVP 10 ml PRN PRN Administration NEEDED PER PROVIDER ORDERS Sodium Chloride 10 ml 02/11/17 22:00 02/17/17 08:19 Normal Saline Flush 0.9% IVP 10 ml Q8HR DIEGO Administration Thiamine HCl 100 mg 02/12/17 17:00 02/17/17 08:18 Vitamin B-1 PO 100 mg DAILY DIEGO Administration Venlafaxine HCl 150 mg 02/12/17 17:00 02/17/17 08:18 Effexor Er PO 150 mg DAILY DIEGO Administration - Lab Result Lab results reviewed: Yes Fish Bone Diagrams: 02/16/17 05:35 02/17/17 05:33 - EKG Results EKG Interpreted Independently: Yes - Diagnostic Imaging Results Diagnostic Imaging Results: positive: Final report reviewed - Additional Planning Condition/Complexity: Stable My Orders: My Active Orders 02/17/17 09:00 Senna [Senokot] 8.6 - 17.2 mg PO DAILY Consult/Specialty: PT Plan Discussed with:: Patient, Case Management Time Spent: 31-60 minutes Subjective - Subjective Patient Reports: Feeling Better, Resting Comfortably, No Complaints (No complaints. She feels well. Eating with good appetite. She just wants to get out of the hospital soon.) Nursing Reports: No Complaints Objective Vital Signs: Vital Signs - 24 hr 02/16/17 02/16/17 02/17/17 16:15 21:00 01:00 Temperature 36.9 C 36.9 C 37.1 C Heart Rate [ 84 94 92 Radial] Respiratory 18 18 16 Rate Blood Pressure 113/73 115/72 128/84 H [Right Brachial artery] O2 Saturation 98 96 98 02/17/17 02/17/17 02/17/17 05:00 09:00 13:00 Temperature 37.0 C 37.0 C 36.9 C Heart Rate [ 90 107 H 86 Radial] Respiratory 16 12 18 Rate Blood Pressure 126/74 134/86 H 121/73 [Right Brachial artery] O2 Saturation 96 97 99 Oxygen O2 Source Room air I&O (Last 24 Hrs): Intake and Output Totals x24h 02/15/17 02/16/17 02/17/17 23:59 23:59 23:59 Intake Total 640 1600 360 Output Total 2800 900 375 Balance -2160 700 -15 General: Alert, Oriented x3, Cooperative, No acute distress HEENT: Atraumatic, PERRLA, EOMI, Mucous membr. moist/pink Neck: Supple, No JVD, No thyromegaly, +2 carotid pulse wo bruit, No LAD Lymphatic: no adenopathy Neuro: Alert, Non Focal, CN 2-12 Grossly Intact, Oriented Times 3 Cardiovascular: Regular rate, Normal S1, Normal S2, No murmurs Respiratory: Chest non-tender, No respiratory distress, Breath sounds nml Abdomen: Normal bowel sounds, Soft, No tenderness, No hepatospenomegaly Extremities: No clubbing, No cyanosis, No edema, Normal pulses, No tenderness/ swelling Skin: No rashes, No breakdown - Results Results: Laboratory Results WBC 4.8 x10^3/uL (4.8-10.8) 02/16/17 05:35 RBC 4.45 10^6/uL (4.20-5.40) 02/16/17 05:35 Hgb 12.8 g/dL (12.0-16.0) 02/16/17 05:35 Hct 39.9 % (37.0-47.0) 02/16/17 05:35 MCV 89.6 fL (81.0-99.0) 02/16/17 05:35 MCH 28.7 pg (27.0-31.0) 02/16/17 05:35 MCHC 32.0 g/dL (32.0-36.0) 02/16/17 05:35 RDW 17.9 % (12.0-15.0) H 02/16/17 05:35 Plt Count 123 10^3/uL (130-450) L 02/16/17 05:35 MPV 7.9 fL (7.9-10.8) 02/16/17 05:35 Neut # 2.8 10^3/uL (1.5-6.6) 02/16/17 05:35 Lymph # 1.2 10^3/uL (1.5-3.5) L 02/16/17 05:35 [place] # 0.7 10^3/uL (0.0-1.0) 02/16/17 05:35 Eos # 0.1 10^3/uL (0.0-0.7) 02/16/17 05:35 Baso # 0.0 10^3/uL (0.0-0.1) 02/16/17 05:35 Absolute Nucleated RBC 0.01 x10^3/uL 02/16/17 05:35 Nucleated RBCs 0.1 /100WBC 02/16/17 05:35 PT 19.9 secs (9.9-12.6) H 02/11/17 16:08 INR 1.8 (0.8-1.2) H 02/11/17 16:08 APTT 25.3 secs (24.9-33.3) 02/11/17 16:08 VBG pH 7.374 (7.31-7.41) 02/12/17 06:52 VBG pCO2 39.6 mmHg (41-51) L 02/12/17 06:52 VBG pO2 182.3 mmHg (25-47) H 02/12/17 06:52 VBG HCO3 22.6 mmol/L (23-28) L 02/12/17 06:52 VBG Total CO2 23.8 mmol/L (24-29) L 02/12/17 06:52 VBG O2 Saturation 99.2 % (60-80) H 02/12/17 06:52 VBG Base Excess -2.4 mmol/L (-2 - +2) L 02/12/17 06:52 Sodium 138 mmol/L (135-145) 02/17/17 05:33 Potassium 3.5 mmol/L (3.5-5.0) 02/17/17 05:33 Chloride 91 mmol/L (101-111) L 02/17/17 05:33 Carbon Dioxide 39 mmol/L (21-32) H* 02/17/17 05:33 Anion Gap 8.0 (6-13) 02/17/17 05:33 BUN 14 mg/dL (6-20) 02/17/17 05:33 Creatinine 0.9 mg/dL (0.4-1.0) 02/17/17 05:33 Estimated GFR (MDRD) 62 (>89) L 02/17/17 05:33 Glucose 95 mg/dL (70-100) 02/17/17 05:33 POC Whole Bld Glucose 88 mg/dL (70 - 100) 02/12/17 02:42 Lactic Acid 1.0 mmol/L (0.5-2.2) 02/13/17 06:20 Calcium 8.9 mg/dL (8.5-10.3) 02/17/17 05:33 Phosphorus 3.5 mg/dL (2.5-4.6) 02/15/17 05:45 Magnesium 1.1 mg/dL (1.7-2.8) L 02/15/17 05:45 Total Bilirubin 1.5 mg/dL (0.2-1.0) H 02/16/17 05:53 Direct Bilirubin 0.6 mg/dL (0.1-0.5) H 02/16/17 05:53 AST 44 IU/L (10-42) H 02/16/17 05:53 ALT 42 IU/L (10-60) 02/16/17 05:53 Alkaline Phosphatase 123 IU/L (42-121) H 02/16/17 05:53 Ammonia 32.5 umol/L (7-35) 02/12/17 10:27 Total Creatine Kinase 565 IU/L (22-269) H 02/11/17 16:08 Troponin I 0.08 ng/mL (<0.49) 02/12/17 15:32 B-Natriuretic Peptide 998 pg/mL (5-100) H 02/16/17 05:35 Total Protein 5.2 g/dL (6.7-8.2) L 02/16/17 05:53 Albumin 2.3 g/dL (3.2-5.5) L 02/16/17 05:53 Globulin 2.9 g/dL (2.1-4.2) 02/16/17 05:53 Albumin/Globulin Ratio 0.9 (1.0-2.2) L 02/12/17 03:23 Lipase 23 U/L (22-51) 02/11/17 16:08 Urine Color YELLOW 02/11/17 15:50 Urine Clarity HAZY (CLEAR) 02/11/17 15:50 Urine pH 5.0 PH (5.0-7.5) 02/11/17 15:50 Ur Specific [place] >=1.030 (1.002-1.030) H 02/11/17 15:50 Urine Protein 30 mg/dL (NEGATIVE) H 02/11/17 15:50 Urine Glucose (UA) NEGATIVE mg/dL (NEGATIVE) 02/11/17 15:50 Urine Ketones TRACE mg/dL (NEGATIVE) 02/11/17 15:50 Urine Occult Blood NEGATIVE (NEGATIVE) 02/11/17 15:50 Urine Nitrite NEGATIVE (NEGATIVE) 02/11/17 15:50 Urine Bilirubin NEGATIVE (NEGATIVE) 02/11/17 15:50 Urine Urobilinogen 0.2 (NORMAL) E.U./dL (NORMAL) 02/11/17 15:50 Ur Leukocyte Esterase NEGATIVE (NEGATIVE) 02/11/17 15:50 Urine RBC None Seen /HPF (0-5) 02/11/17 15:50 Urine WBC 0-3 /HPF (0-5) 02/11/17 15:50 Ur Squamous Epith Cells NONE SEEN (<= Few) 02/11/17 15:50 Amorphous Sediment Marked /LPF 02/11/17 15:50 Urine Bacteria None Seen /HPF (None Seen) 02/11/17 15:50 Ur Microscopic Review INDICATED 02/11/17 15:50 Urine Culture Comments NOT INDICATED 02/11/17 15:50 Last Dose Date K 02/14/17 05:21 Last Dose Time K 02/14/17 05:21 Digoxin 1.3 ng/mL 02/14/17 05:21 Ethyl Alcohol < 5.0 mg/dL 02/11/17 16:08 Hepatitis A IgM Ab NON-REACTIVE (NON-REACTIVE) 02/12/17 08:05 Hep Bs Antigen NON-REACTIVE (NON-REACTIVE) 02/12/17 08:05 Hep B Core IgM Ab NON-REACTIVE (NON-REACTIVE) 02/12/17 08:05 Hepatitis C Antibody NON-REACTIVE (NON-REACTIVE) 02/12/17 08:05 Hep C Ab Signal/Cutoff 0.00 (<1.00) 02/12/17 08:05
[2017-02-17] MEDS: HYDROcod/ACETAM 5/325 MG TABLET PO PRN (22:58)
[2017-02-18] MEDS ORDERED: GLYCERIN ADULT SUPP PR SCH (03:05)
[2017-02-18] MEDS: SODIUM CHLORIDE FLUSH 0.9% 10 ML SYRINGE IVP SCH (05:11)
[2017-02-18] MEDS ORDERED: LACTULOSE 10 GM /15 ML UDC PO SCH (05:21)
[2017-02-18] MEDS: NICOTINE 14 MG PATCH TOP SCH (08:21)
[2017-02-18] MEDS: POLYETHYLENE GLYCOL 3350 17 GM PACKET PO SCH (08:21)
[2017-02-18] MEDS: DOCUSATE SODIUM 250 MG CAPSULE PO SCH (08:22)
[2017-02-18] MEDS: PRENATAL VITAMIN TABLET PO SCH (08:22)
[2017-02-18] MEDS: CARVEDILOL 3.125 MG TABLET PO SCH (08:23)
[2017-02-18] MEDS: SENNA 8.6 MG TABLET PO SCH (08:23)
[2017-02-18] MEDS: ASPIRIN CHEW 81 MG TABLET PO SCH (08:23)
[2017-02-18] MEDS: LISINOPRIL 5 MG TABLET PO SCH (08:23)
[2017-02-18] MEDS: DIGOXIN 125 MCG TABLET PO SCH (08:23)
[2017-02-18] MEDS: THIAMINE 100 MG TABLET PO SCH (08:23)
[2017-02-18] MEDS: VENLAFAXINE ER 75 MG CAPSULE PO SCH (08:23)
[2017-02-18 09:17] VITALS: BP 133/71
--- NOTE | 2017-02-19 07:55 | DISCHARGE SUMMARY ---
DATE OF ADMISSION: 02/11/2017 DATE OF DISCHARGE: 02/18/2017 PRIMARY CARE PHYSICIAN: ELIZABETH Marmolejo DISCHARGING PHYSICIAN: Juan Smith MD DISCHARGE DIAGNOSES 1. Congestive heart failure exacerbation. 2. Atrial fibrillation with rapid ventricular response. 3. Acute encephalopathy. 4. Hyponatremia. 5. Acute kidney injury. 6. Alcohol abuse. 7. Elevated liver function tests. 8. Acute respiratory failure with hypoxia. 9. Alcoholic hepatitis. DISCHARGE MEDICATIONS 1. Coreg 6.25 mg p.o. b.i.d. 2. Aspirin 81 mg p.o. daily. 3. Digoxin 125 mcg p.o. daily. 4. Lisinopril 5 mg p.o. daily. 5. Thiamine 100 mg p.o. daily. 6. Multivitamin 1 tablet p.o. daily. 7. Effexor ER 150 mg p.o. daily. HOSPITAL COURSE: The patient is a 71-year-old female with a past medical history significant for inva sive lobular carcinoma of the breast, alcoholism, depression, and osteopenia, who presented to the em ergency department with generalized weakness. The patient had fallen to the ground at her home [facility] and was unable to get up. The patient has been having increasing fatigue, decreased appetite, and decreased oral intake. The patient had become more and more short of breath and had increasing lower extremity edema over the last several weeks. The patient has a history of alcoholism and she continu ed to drink 3 to 4 gin and tonics a day. The patient on presentation to the emergency department was found to be in atrial fibrillation with R VR. After presentation to the hospital, the patient was found to be tachypneic and in respiratory dis tress. She became hypoxemic. On presentation, the patient was slightly agitated and confused. She was given Zyprexa and Ativan with which patient then had decreased respiratory drive. She became hypoxic and had to be placed in the ICU on BiPAP. The patient was on BiPAP for about 12 hours, after which s he recovered and regained her respiratory drive, became more alert, although she was still confused a nd was slightly agitated. She was placed on CIWA. She continued to be monitored on CIWA, was given At karrie as needed. Patient's atrial fibrillation resolved with initial diltiazem drip. The patient was e ventually placed on digoxin and Coreg, with which her heart rate remained controlled. The patient underwent an echocardiogram while she was hospitalized, which did reveal a reduced EF of 45% with global hypokinesis and severely increased left atrial volume index. The patient was placed o n optimal medications for CHF including Coreg, digoxin, and lisinopril. The patient was diuresed whil e she was hospitalized, with which her respiratory status improved. The patient worked with Physical Therapy and it was determined that [facility], as she had become quite weak from her illness, as well as from previous drinking. The patient's menta l status improved to her baseline. Her family wanted her to be closer to them in [place]. The rajate nt was sent to a [facility] in [place]. At the time of discharge, the patient was in stable condition. She was placed on optimal medications for CHF and she was discharged in good condition. PHYSICAL EXAMINATION AT DISCHARGE VITAL SIGNS: Temperature 37.1, heart rate 97, blood pressure 133/71, respiratory rate 16, O2 saturati on 97% on room air. GENERAL: The patient is alert and able to answer all my questions appropriately. She is sitting in th e chair and does not appear to be in any acute distress. HEENT: Pupils are equal and reactive to light. Extraocular muscles are intact. Mucous membranes are m oist. There is no conjunctival pallor or scleral icterus noted. NECK: Supple. No thyromegaly. No JVD. Trachea is midline. LYMPH NODES: There is no cervical or axillary lymphadenopathy noted. CARDIOVASCULAR: S1, S2, irregularly irregular rhythm. No murmurs, rubs, or gallops. LUNGS: Clear to auscultation bilaterally. No wheezes, rhonchi, or crackles. ABDOMEN: Soft, nontender, nondistended. Bowel sounds are present in all 4 quadrants. EXTREMITIES: There is no lower extremity edema. Peripheral pulses are palpable. There is no cyanosis or clubbing. SKIN: No skin rashes, lesions, cellulitis, or abscesses. NEUROLOGIC: The patient is alert and oriented x3. Cranial nerves 2 through 12 grossly intact. Strengt h is grossly normal. Sensations are intact. PSYCH: Patient is slightly depressed. LABORATORY: WBC 4.8, hemoglobin 12.8, hematocrit 39.9, platelet count 123. Sodium 138, potassium 3.5, chloride 91, carbon dioxide 39, BUN 14, creatinine 0.9, glucose 95, calcium 8.9. Lactic acid 1.0. Ma gnesium 1.1. Total bilirubin 1.5, direct bilirubin 0.6, AST 44, ALT 42, alkaline phosphatase 123. BNP 998. Total protein 5.2. Digoxin level 1.3. Hepatitis panel negative. IMAGING CT cervical spine. Impression: Mild degenerative disk disease of cervical spine, without evidence of cervical spine fracture. X-ray femur. Impression: Normal femur radiography. CT Head. Impression: Normal CT head. Ribs with chest x-ray. Impression: Normal rib radiography. Chest x-ray. Impression: Rotated exam with cardiomegaly and postoperative changes. New pulmonary opac ities, probably representing pulmonary edema or volume overload, possible small effusions. CT head. Impression: No acute intracranial process. Abdominal ultrasound. Impression: Mild bilateral upper quadrant ascites. Two small right pleural effu sions. Liver, heterogeneous echotexture, no focal masses. FOLLOWUP/RECOMMENDATIONS: Patient is being [facility] [place]. The p mark was treated here for atrial fibrillation with RVR and found to have congestive heart failure w ith exacerbation. Patient was given Lasix with which her hypoxia and respiratory distress improved. T he patient was placed on optimal medications for her CHF including Coreg, lisinopril, and digoxin. Th e patient's atrial fibrillation was rate controlled with Coreg and digoxin. She was placed on aspirin as her CHADS2 score was just 1. The patient was counseled on alcoholism and she was placed on CIWA. She was stable at the time of discharge, she was able to be taken off of CIWA and was mentating at he r normal state. The patient was weak and required physical therapy and was determined to need rehabil itation. She was discharged to a SNF in [place] for physical therapy rehabilitation. TIME SPENT ON DISCHARGE: Greater than 30 minutes were spent on discharge. JOB #: [id number] EXT JOB #:[id number]
== END 2017-02-18 12:15 | DRG 291 ==
LOC: EDBD → EDUNIT# → ED 15:07 → MS 18:07 → ICU 02-12 02:46 → MS 02-13 16:31
PROVIDERS: ADMIT Specialist; ATTEND Internal Medicine
DX: I50.21 Acute systolic (congestive) heart failure (principal); G92 Toxic encephalopathy; J96.01 Acute respiratory failure with hypoxia; K70.31 Alcoholic cirrhosis of liver with ascites; R60.0 Localized edema; E87.1 Hypo-osmolality and hyponatremia; Z87.898 Personal history of other specified conditions; N17.9 Acute kidney failure, unspecified; I48.91 Unspecified atrial fibrillation; F10.20 Alcohol dependence, uncomplicated; K70.11 Alcoholic hepatitis with ascites; R79.89 Other specified abnormal findings of blood chemistry; F32.9 Major depressive disorder, single episode, unspecified; L98.9 Disorder of the skin and subcutaneous tissue, unspecified; M50.320 Other cervical disc degeneration, mid-cervical region, unspecified level; M85.88 Other specified disorders of bone density and structure, other site; Z85.3 Personal history of malignant neoplasm of breast; T43.595A Adverse effect of other antipsychotics and neuroleptics, initial encounter; T42.4X5A Adverse effect of benzodiazepines, initial encounter; Y92.239 Unspecified place in hospital as the place of occurrence of the external cause; Z95.1 Presence of aortocoronary bypass graft; Z87.891 Personal history of nicotine dependence; Z66 Do not resuscitate
CPT/HCPCS: 36415; 51702; 70450; 71010; 72125; 76700; 80048; 80053; 80074; 80076; 80162; 80320; 81001; 81003; 82140; 82550; 82803; 83605; 83690; 83735; 83880; 84100; 84484; 85025; 85610; 85730; 87086; 87150; 87341; 93005; 93010; 93306; 94660; 96365; 96375; 96376; 99284; 99285